=== PATIENT | female | born 1955 | race Caucasian/White ===

== ENCOUNTER 2018-04-11 10:36 | Inpatient (IN) | payer BC ==
[~2018-04-11] VITALS: Ht 160 cm; Wt 87.9 kg
[~2018-04-11 10:36] MED LIST: AMIO100T3 PO; CARV3.1240 PO; CHOL400C12 PO; DAPA1TAB4 PO; DULO20CA PO; FURO40TA PO; GABA-339 PO; HYDR-531 PO; LEV100T PO; MET5XLT PO; METF-370 PO; MILK175C5 PO; POTA20TA53 PO; RIV20T PO; SIMV-8 PO; TRIA0.1P11 TOP
[2018-04-11] MEDS ORDERED: FUROSEMIDE 40 MG/4 ML VIAL IV ONE (11:00)
[2018-04-11 11:24] LABS: Basophils # (auto) 0.1 uL; Eosinophils # (auto) 0.1 uL; Eosinophils % (auto) 1.2 % (0.0-7.0); Lymphocytes # (auto) 1.5 uL; Mean Corpuscular Volume 80.8 fL (80.0-100.0); Monocytes # (auto) 0.8 uL; Neutrophils # (auto) 5.6 uL
[2018-04-11 11:26] LABS: Basophils % (auto) 0.9 % (0.0-2.0); Hematocrit 34.9 % (36.0-46.0); Hemoglobin 10.8 g/dL (12.2-16.2); Lymphocytes % (auto) 18.1 % (10.0-50.0); Monocytes % (auto) 10.2 % (0.0-12.0); Neutrophils % (auto) 69.6 % (37.0-80.0); Nucleated Red Blood Cells % 0.1 %; Platelet Count (auto) 355 10^3/uL (140-450); Red Blood Cells 4.31 10^6/uL (4.0-5.20); White Blood Cell 8.1 10^3/uL (4.4-10.8)
[2018-04-11 11:40] LABS: Albumin 3.4 g/dL (3.4-5.0); Anion Gap 3 (5-15); Blood Urea Nitrogen 50 mg/dL (7-18); Calcium 8.8 mg/dL (8.5-10.1); Carbon Dioxide 32 mmol/L (21-32); Chloride 105 mmol/L (98-107); Glucose 137 mg/dL (74-106); Magnesium 2.6 mg/dL (1.6-2.6); Potassium 5.5 mmol/L (3.5-5.1); Sodium 140 mmol/L (136-145)
[2018-04-11 11:41] LABS: INR 1.19 (0.9-1.15); Partial Thromboplastin Time 29.2 sec (23.78-33.04); Prothrombin Time 12.6 sec (9.27-12.13)
[2018-04-11 11:47] LABS: Red Cell Distribution Width 20.7 % (11.8-14.3)
[2018-04-11 11:49] LABS: Alanine Aminotransferase 14 U/L (13-56); Alkaline Phosphatase 127 U/L (45-117); Aspartate Aminotransferase 23 U/L (15-37); BUN/Creatinine Ratio 22.2; Bilirubin, Total 0.5 mg/dL (0.2-1.0); GFR African American 28 mL/min; GFR Non-African American 23 mL/min
[2018-04-11] MEDS ORDERED: MORPHINE SULFATE 10 MG/ML INJ 1ML SDV IV PRN ×2 (14:45)
[2018-04-11] MEDS ORDERED: NITROGLYCERIN 0.4 MG SL TAB SL PRN (14:45)
[2018-04-11] MEDS ORDERED: DEXTROSE (50%) 50ML SYRG IV PRN (14:45)
[2018-04-11] MEDS ORDERED: LACTULOSE 20Gm/30ML SOLN PO PRN (14:45)
[2018-04-11] MEDS ORDERED: LORazepam 0.5 MG TAB PO PRN (14:45)
[2018-04-11] MEDS ORDERED: ACETAMINOPHEN 500 MG TAB PO PRN (14:45)
[2018-04-11] MEDS ORDERED: TEMAZEPAM 15 MG CAP PO PRN (14:45)
[2018-04-11] MEDS: HYDROcodone-ACET 5/325MG TAB PO PRN ×2 (14:59→21:58)
[2018-04-11] MEDS: ACCU-CHEK COMFORT CURVE STRIP VI SCH ×2 (16:43→21:57)
[2018-04-11] MEDS: InsuLIN REG 1unit/0.01ml Soln (100units/ml) SC SCH ×2 (16:43→21:59)
[2018-04-11] MEDS: FUROSEMIDE 40 MG/4 ML VIAL IV SCH (18:08)
[2018-04-11] MEDS: SPIRONOLACTONE 25 MG TAB PO SCH (18:08)
[2018-04-11] MEDS: RIVAROXABAN 20 MG TAB PO SCH (18:08)
[2018-04-11 18:35] VITALS: BP 121/75
[2018-04-11] MEDS ORDERED: GABA-339 PO (18:55)
[2018-04-11] MEDS ORDERED: SPIR25TA88 PO (18:55)
[2018-04-11] MEDS ORDERED: BUME1TAB PO (18:55)
[2018-04-11] MEDS ORDERED: LEVOFLOXACIN 500MG 100 ML IV ONE (20:30)
[2018-04-11] MEDS: GABAPENTIN 300 MG CAP PO SCH (21:57)
[2018-04-11] MEDS: ATORVASTATIN 20 MG TAB PO SCH (21:57)
[2018-04-11] MEDS: SODIUM CHLOR 0.9% PF (SALINE LOCK) 10ML VIAL/SYR IV SCH (21:57)
[2018-04-11 22:00] VITALS: BP 107/70
[2018-04-12] VITALS (17 sets, daily range): BP systolic 96–132; BP diastolic 60–85
[2018-04-12 05:51] LABS: Basophils # (auto) 0 uL; Lymphocytes # (auto) 1.2 uL; Lymphocytes % (auto) 20.1 % (10.0-50.0); Mean Corpuscular Volume 79.8 fL (80.0-100.0); Monocytes # (auto) 0.7 uL; Nucleated Red Blood Cells % 0.1 %
[2018-04-12 05:55] LABS: Basophils % (auto) 0.7 % (0.0-2.0); Eosinophils # (auto) 0 uL; Eosinophils % (auto) 0.8 % (0.0-7.0); Hematocrit 30.2 % (36.0-46.0); Hemoglobin 9.8 g/dL (12.2-16.2); Mean Corpuscular Hemoglobin 25.9 pg (28.0-32.0); Mean Corpuscular Hgb Conc. 32.5 g/dL (32.0-36.0); Monocytes % (auto) 12.6 % (0.0-12.0); Neutrophils # (auto) 3.8 uL; Neutrophils % (auto) 65.8 % (37.0-80.0); Platelet Count (auto) 253 10^3/uL (140-450); Red Blood Cells 3.78 10^6/uL (4.0-5.20); White Blood Cell 5.8 10^3/uL (4.4-10.8)
[2018-04-12 06:11] LABS: BUN/Creatinine Ratio 23.1; Calcium 8.7 mg/dL (8.5-10.1); Potassium 4.8 mmol/L (3.5-5.1)
[2018-04-12 06:13] LABS: Bilirubin, Total 0.4 mg/dL (0.2-1.0); Total Protein 6.4 g/dL (6.4-8.2)
[2018-04-12 06:20] LABS: Red Cell Distribution Width 20.3 % (11.8-14.3)
[2018-04-12] MEDS: LEVOTHYROXINE SODIUM 50 MCG TAB PO SCH (06:49)
[2018-04-12] MEDS: SPIRONOLACTONE 25 MG TAB PO SCH ×2 (06:49→18:10)
[2018-04-12] MEDS: FUROSEMIDE 40 MG/4 ML VIAL IV SCH ×2 (06:49→18:10)
[2018-04-12] MEDS: SODIUM CHLOR 0.9% PF (SALINE LOCK) 10ML VIAL/SYR IV SCH ×3 (06:49→22:52)
[2018-04-12] MEDS: ACCU-CHEK COMFORT CURVE STRIP VI SCH ×4 (06:50→22:51)
[2018-04-12] MEDS: InsuLIN REG 1unit/0.01ml Soln (100units/ml) SC SCH ×4 (06:50→22:50)
[2018-04-12] MEDS ORDERED: INS7030I SC ×2 (07:24)
[2018-04-12] MEDS: HYDROcodone-ACET 5/325MG TAB PO PRN (08:47)
[2018-04-12] MEDS: AMIODARONE HCL 200 MG TAB PO SCH (08:47)
[2018-04-12] MEDS: GABAPENTIN 300 MG CAP PO SCH ×2 (08:48→22:00)
[2018-04-12] MEDS: LEVOFLOXACIN 250MG 50 ML IV SCH (08:48)
[2018-04-12] MEDS: PANTOPRAZOLE 40 MG TAB PO SCH (08:48)
[2018-04-12] MEDS: POTASSIUM CHL 20 Meq TABLET PO SCH (08:48)
[2018-04-12] MEDS: CHOLECALCIFEROL (VITD3) 1,000 UNIT TAB PO SCH (08:48)
[2018-04-12] MEDS: NITROGLYCERIN 0.2MG/HR TOPICAL PATCH TD SCH (08:50)
[2018-04-12] MEDS ORDERED: CARVEDILOL 3.125 MG TAB PO SCH (10:00)
[2018-04-12] MEDS ORDERED: ASPirin 81 mg TAB PO SCH (10:00)
[2018-04-12] MEDS ORDERED: DULoxetine HCL 30 MG CAP PO SCH (10:00)
[2018-04-12] MEDS: HYDROcodone-ACET 10/325MG TAB PO PRN (16:00)
[2018-04-12 17:02] LABS: Urine WBC None Seen /hpf (0 - 5)
[2018-04-12 17:28] LABS: Urine Bacteria NONE SEEN /hpf (None Seen); Urine Blood Negative /uL (Negative); Urine Specific Gravity 1.012 (1.001-1.035)
[2018-04-12] MEDS: RIVAROXABAN 20 MG TAB PO SCH (18:10)
[2018-04-12] MEDS: PROMETHAZINE HCL 25 MG/ML 1ML IV PRN (21:00)
[2018-04-12] MEDS: INSULIN 70/30 1unit/0.01ml Susp (100units/ml) SC SCH (22:00)
[2018-04-12] MEDS: ATORVASTATIN 20 MG TAB PO SCH (22:00)
[2018-04-13] MEDS: MORPHINE SULFATE 10 MG/ML INJ 1ML SDV IV PRN ×4 (01:00→22:49)
[2018-04-13 05:00] VITALS: BP 101/73
[2018-04-13] MEDS: SPIRONOLACTONE 25 MG TAB PO SCH ×3 (06:00→17:44)
[2018-04-13 06:37] LABS: Basophils # (auto) 0 uL; Basophils % (auto) 0.4 % (0.0-2.0); Eosinophils # (auto) 0 uL; Eosinophils % (auto) 0.7 % (0.0-7.0); Hemoglobin 8.6 g/dL (12.2-16.2); Lymphocytes # (auto) 1.1 uL; Lymphocytes % (auto) 16.1 % (10.0-50.0); Mean Corpuscular Hemoglobin 25.2 pg (28.0-32.0); Mean Corpuscular Hgb Conc. 31.9 g/dL (32.0-36.0); Monocytes # (auto) 0.8 uL; Neutrophils # (auto) 4.7 uL; Neutrophils % (auto) 70.8 % (37.0-80.0); Nucleated Red Blood Cells % 0.1 %; Platelet Count (auto) 258 10^3/uL (140-450); Red Blood Cells 3.42 10^6/uL (4.0-5.20); White Blood Cell 6.7 10^3/uL (4.4-10.8)
[2018-04-13 06:39] LABS: Red Cell Distribution Width 20.5 % (11.8-14.3)
[2018-04-13 06:42] LABS: BUN/Creatinine Ratio 22.4; Calcium 8.6 mg/dL (8.5-10.1); Magnesium 2.2 mg/dL (1.6-2.6); Potassium 4.2 mmol/L (3.5-5.1); Uric Acid 11.7 mg/dL (2.6-6.0)
[2018-04-13 06:46] LABS: Bilirubin, Direct 0.2 mg/dL (0-0.2); Bilirubin, Total 0.4 mg/dL (0.2-1.0); Phosphorus 3.9 mg/dL (2.5-4.90); Total Protein 6.1 g/dL (6.4-8.2)
[2018-04-13] MEDS: SODIUM CHLOR 0.9% PF (SALINE LOCK) 10ML VIAL/SYR IV SCH ×3 (06:54→22:47)
[2018-04-13] MEDS: ACCU-CHEK COMFORT CURVE STRIP VI SCH ×4 (06:56→22:49)
[2018-04-13] MEDS: FUROSEMIDE 40 MG/4 ML VIAL IV SCH ×2 (06:56→17:43)
[2018-04-13] MEDS: LEVOTHYROXINE SODIUM 50 MCG TAB PO SCH (06:57)
[2018-04-13] MEDS: InsuLIN REG 1unit/0.01ml Soln (100units/ml) SC SCH ×4 (07:00→22:48)
[2018-04-13] MEDS: LEVOFLOXACIN 250MG 50 ML IV SCH (09:29)
[2018-04-13] MEDS: AMIODARONE HCL 200 MG TAB PO SCH (09:30)
[2018-04-13] MEDS: PANTOPRAZOLE 40 MG TAB PO SCH (09:31)
[2018-04-13] MEDS: POTASSIUM CHL 20 Meq TABLET PO SCH (09:31)
[2018-04-13] MEDS: GABAPENTIN 300 MG CAP PO SCH ×2 (09:31→22:48)
[2018-04-13] MEDS: NITROGLYCERIN 0.2MG/HR TOPICAL PATCH TD SCH (09:32)
[2018-04-13] MEDS: CHOLECALCIFEROL (VITD3) 1,000 UNIT TAB PO SCH (09:32)
[2018-04-13] MEDS: METOPROLOL SUCCINATE XL 50 MG TAB PO SCH (09:53)
[2018-04-13] MEDS: INSULIN 70/30 1unit/0.01ml Susp (100units/ml) SC SCH ×2 (09:58→22:48)
[2018-04-13] MEDS: HYDROcodone-ACET 10/325MG TAB PO PRN ×2 (10:00→17:44)
[2018-04-13 10:10] VITALS: BP 100/62
[2018-04-13 11:00] LABS: Protein, Urine 19.8 mg/dL (0.0-11.9)
[2018-04-13] MEDS: ALLOPURINOL 100 MG TAB PO SCH (11:43)
[2018-04-13 13:00] VITALS: BP 117/79
[2018-04-13 17:18] VITALS: BP 99/66
[2018-04-13 22:00] VITALS: BP 101/63
[2018-04-13] MEDS: ATORVASTATIN 20 MG TAB PO SCH (22:47)
[2018-04-14] MEDS: HYDROcodone-ACET 10/325MG TAB PO PRN (00:59)
[2018-04-14 05:00] VITALS: BP 114/69
[2018-04-14] MEDS: InsuLIN REG 1unit/0.01ml Soln (100units/ml) SC SCH ×4 (06:20→22:17)
[2018-04-14 06:32] LABS: Eosinophils # (auto) 0.1 uL; Eosinophils % (auto) 0.7 % (0.0-7.0); Lymphocytes # (auto) 1.4 uL; Mean Corpuscular Volume 78.4 fL (80.0-100.0); White Blood Cell 7.9 10^3/uL (4.4-10.8)
[2018-04-14 06:34] LABS: Basophils # (auto) 0 uL; Basophils % (auto) 0.6 % (0.0-2.0); Hematocrit 24.4 % (36.0-46.0); Lymphocytes % (auto) 18.1 % (10.0-50.0); Mean Corpuscular Hemoglobin 25.6 pg (28.0-32.0); Mean Corpuscular Hgb Conc. 32.7 g/dL (32.0-36.0); Monocytes % (auto) 13.1 % (0.0-12.0); Neutrophils # (auto) 5.3 uL; Neutrophils % (auto) 67.5 % (37.0-80.0); Platelet Count (auto) 245 10^3/uL (140-450); Red Blood Cells 3.11 10^6/uL (4.0-5.20); Red Cell Distribution Width 19.9 % (11.8-14.3)
[2018-04-14 06:42] LABS: Potassium 3.8 mmol/L (3.5-5.1)
[2018-04-14] MEDS: SODIUM CHLOR 0.9% PF (SALINE LOCK) 10ML VIAL/SYR IV SCH ×3 (06:45→21:51)
[2018-04-14] MEDS: FUROSEMIDE 40 MG/4 ML VIAL IV SCH ×2 (06:45→17:46)
[2018-04-14] MEDS: SPIRONOLACTONE 25 MG TAB PO SCH (06:45)
[2018-04-14] MEDS: ACCU-CHEK COMFORT CURVE STRIP VI SCH ×4 (06:46→21:58)
[2018-04-14] MEDS: LEVOTHYROXINE SODIUM 50 MCG TAB PO SCH (06:46)
[2018-04-14] MEDS: MORPHINE SULFATE 10 MG/ML INJ 1ML SDV IV PRN ×3 (06:48→20:23)
[2018-04-14 06:49] LABS: BUN/Creatinine Ratio 23.2; Calcium 8.3 mg/dL (8.5-10.1)
[2018-04-14 08:45] VITALS: BP 111/69
[2018-04-14] MEDS: LEVOFLOXACIN 250MG 50 ML IV SCH (09:35)
[2018-04-14] MEDS: METOPROLOL SUCCINATE XL 50 MG TAB PO SCH (09:35)
[2018-04-14] MEDS: ALLOPURINOL 100 MG TAB PO SCH (09:36)
[2018-04-14] MEDS: AMIODARONE HCL 200 MG TAB PO SCH (09:36)
[2018-04-14] MEDS: GABAPENTIN 300 MG CAP PO SCH ×2 (09:37→21:52)
[2018-04-14] MEDS: PANTOPRAZOLE 40 MG TAB PO SCH (09:37)
[2018-04-14] MEDS: POTASSIUM CHL 20 Meq TABLET PO SCH (09:37)
[2018-04-14] MEDS: NITROGLYCERIN 0.2MG/HR TOPICAL PATCH TD SCH (09:38)
[2018-04-14] MEDS: CHOLECALCIFEROL (VITD3) 1,000 UNIT TAB PO SCH (09:38)
[2018-04-14] MEDS: INSULIN 70/30 1unit/0.01ml Susp (100units/ml) SC SCH ×2 (10:29→22:17)
[2018-04-14 13:00] VITALS: BP 100/68
[2018-04-14] MEDS ORDERED: FERROUS SULFATE 325 MG TAB PO ONE (13:30)
[2018-04-14] MEDS: PROMETHAZINE HCL 25 MG/ML 1ML IV PRN (16:14)
[2018-04-14 17:12] VITALS: BP 114/74
[2018-04-14] MEDS: FERROUS SULFATE 325 MG TAB PO SCH (17:46)
[2018-04-14] MEDS: ATORVASTATIN 20 MG TAB PO SCH (21:51)
[2018-04-14 22:00] VITALS: BP 108/67
[2018-04-15 05:00] VITALS: BP 106/68
[2018-04-15] MEDS: SODIUM CHLOR 0.9% PF (SALINE LOCK) 10ML VIAL/SYR IV SCH ×3 (06:17→22:47)
[2018-04-15] MEDS: FUROSEMIDE 40 MG/4 ML VIAL IV SCH (06:17)
[2018-04-15] MEDS: LEVOTHYROXINE SODIUM 50 MCG TAB PO SCH (06:18)
[2018-04-15] MEDS: MORPHINE SULFATE 10 MG/ML INJ 1ML SDV IV PRN ×3 (06:19→20:14)
[2018-04-15 06:31] LABS: Basophils # (auto) 0 uL; Eosinophils # (auto) 0 uL; Lymphocytes # (auto) 1.4 uL; Mean Corpuscular Volume 78.9 fL (80.0-100.0); Monocytes % (auto) 12.3 % (0.0-12.0)
[2018-04-15 06:34] LABS: Basophils % (auto) 0.5 % (0.0-2.0); Eosinophils % (auto) 0.4 % (0.0-7.0); Hematocrit 24.2 % (36.0-46.0); Hemoglobin 7.8 g/dL (12.2-16.2); Lymphocytes % (auto) 17.8 % (10.0-50.0); Mean Corpuscular Hemoglobin 25.3 pg (28.0-32.0); Mean Corpuscular Hgb Conc. 32.1 g/dL (32.0-36.0); Neutrophils # (auto) 5.4 uL; Nucleated Red Blood Cells % 0.5 %; Platelet Count (auto) 261 10^3/uL (140-450); Red Blood Cells 3.07 10^6/uL (4.0-5.20); White Blood Cell 7.8 10^3/uL (4.4-10.8)
[2018-04-15 06:38] LABS: Red Cell Distribution Width 20.1 % (11.8-14.3)
[2018-04-15 06:50] LABS: BUN/Creatinine Ratio 20.7; Calcium 8.1 mg/dL (8.5-10.1); Magnesium 2.3 mg/dL (1.6-2.6); Potassium 3.8 mmol/L (3.5-5.1)
[2018-04-15] MEDS: ACCU-CHEK COMFORT CURVE STRIP VI SCH ×4 (06:51→22:42)
[2018-04-15] MEDS: InsuLIN REG 1unit/0.01ml Soln (100units/ml) SC SCH ×4 (06:52→22:43)
[2018-04-15 08:00] VITALS: BP 102/46
[2018-04-15 09:14] VITALS: BP 102/46
[2018-04-15] MEDS: NITROGLYCERIN 0.2MG/HR TOPICAL PATCH TD SCH (10:00)
[2018-04-15] MEDS: LEVOFLOXACIN 250MG 50 ML IV SCH (10:14)
[2018-04-15] MEDS: CHOLECALCIFEROL (VITD3) 1,000 UNIT TAB PO SCH (10:15)
[2018-04-15] MEDS: GABAPENTIN 300 MG CAP PO SCH ×2 (10:15→22:37)
[2018-04-15] MEDS: SPIRONOLACTONE 25 MG TAB PO SCH (10:15)
[2018-04-15] MEDS: ALLOPURINOL 100 MG TAB PO SCH (10:15)
[2018-04-15] MEDS: PANTOPRAZOLE 40 MG TAB PO SCH (10:15)
[2018-04-15] MEDS: POTASSIUM CHL 20 Meq TABLET PO SCH (10:16)
[2018-04-15] MEDS: INSULIN 70/30 1unit/0.01ml Susp (100units/ml) SC SCH ×2 (10:18→22:46)
[2018-04-15] MEDS: FERROUS SULFATE 325 MG TAB PO SCH ×2 (10:29→17:47)
[2018-04-15] MEDS: AMIODARONE HCL 200 MG TAB PO SCH (10:29)
[2018-04-15] MEDS: PROMETHAZINE HCL 25 MG/ML 1ML IV PRN ×2 (12:34→20:13)
[2018-04-15 12:37] VITALS: BP 92/48
[2018-04-15] MEDS ORDERED: ALBUMIN 25% 50 ML IV ONE (14:56)
[2018-04-15] MEDS ORDERED: MORPHINE SULFATE 4 MG/ML SYR/VIAL IV PRN (15:00)
[2018-04-15] MEDS ORDERED: HYDROcodone-ACET 10/325MG TAB PO PRN (15:00)
[2018-04-15] MEDS: ALBUMIN 25% 50 ML IV SCH ×2 (15:03→23:00)
[2018-04-15 15:13] LABS: Albumin 2.7 g/dL (3.4-5.0)
[2018-04-15 16:21] LABS: Hepatitis B Surface Antibody Negative
[2018-04-15] MEDS: METOPROLOL SUCCINATE XL 50 MG TAB PO SCH (16:34)
[2018-04-15 16:49] VITALS: BP 96/65
[2018-04-15 17:58] LABS: Hepatitis B Surface Antigen Negative (Negative)
[2018-04-15 17:59] LABS: Hepatitis C Antibody Negative (Negative)
[2018-04-15 18:00] LABS: Hepatitis A Total Antibody Negative; Hepatitis B Core Total AB Negative
[2018-04-15 22:00] VITALS: BP 100/60
[2018-04-15] MEDS: ATORVASTATIN 20 MG TAB PO SCH (22:38)
[2018-04-16] MEDS: PROMETHAZINE HCL 25 MG/ML 1ML IV PRN ×2 (00:28→12:05)
[2018-04-16] MEDS: MORPHINE SULFATE 10 MG/ML INJ 1ML SDV IV PRN ×2 (00:42→06:08)
[2018-04-16 05:00] VITALS: BP 93/44
[2018-04-16] MEDS: SODIUM CHLOR 0.9% PF (SALINE LOCK) 10ML VIAL/SYR IV SCH ×2 (06:08→14:00)
[2018-04-16] MEDS: ALBUMIN 25% 50 ML IV SCH (06:09)
[2018-04-16] MEDS: ACCU-CHEK COMFORT CURVE STRIP VI SCH ×3 (06:12→17:00)
[2018-04-16] MEDS: InsuLIN REG 1unit/0.01ml Soln (100units/ml) SC SCH ×3 (06:16→17:00)
[2018-04-16] MEDS: LEVOTHYROXINE SODIUM 50 MCG TAB PO SCH (06:36)
[2018-04-16 07:45] LABS: BUN/Creatinine Ratio 22.5; Calcium 8.6 mg/dL (8.5-10.1); Uric Acid 10.6 mg/dL (2.6-6.0)
[2018-04-16 08:00] VITALS: BP 134/63
[2018-04-16 08:48] VITALS: BP 134/63
[2018-04-16] MEDS: SPIRONOLACTONE 25 MG TAB PO SCH (09:16)
[2018-04-16] MEDS: METOPROLOL SUCCINATE XL 50 MG TAB PO SCH (09:17)
[2018-04-16] MEDS: ALLOPURINOL 100 MG TAB PO SCH (09:17)
[2018-04-16] MEDS: FERROUS SULFATE 325 MG TAB PO SCH ×2 (09:17→18:00)
[2018-04-16] MEDS: POTASSIUM CHL 20 Meq TABLET PO SCH (09:17)
[2018-04-16] MEDS: PANTOPRAZOLE 40 MG TAB PO SCH (09:18)
[2018-04-16] MEDS: GABAPENTIN 300 MG CAP PO SCH (09:18)
[2018-04-16] MEDS: AMIODARONE HCL 200 MG TAB PO SCH (09:18)
[2018-04-16] MEDS: CHOLECALCIFEROL (VITD3) 1,000 UNIT TAB PO SCH (09:19)
[2018-04-16] MEDS: INSULIN 70/30 1unit/0.01ml Susp (100units/ml) SC SCH (09:23)
[2018-04-16] MEDS: LEVOFLOXACIN 250MG 50 ML IV SCH (09:34)
[2018-04-16] MEDS ORDERED: FUROSEMIDE 40 MG TAB PO SCH (10:00)
[2018-04-16] MEDS ORDERED: AMIO100T3 PO (11:24)
[2018-04-16] MEDS ORDERED: AMIODARONE HCL 200 MG TAB PO ONE (11:30)
[2018-04-16 11:52] VITALS: BP 100/69
[2018-04-16 14:08] VITALS: BP 134/63
[2018-04-16 17:13] VITALS: BP 105/70
== END 2018-04-16 18:51 | disposition home health service (06) | DRG 291 ==
LOC: ER 10:40 → OVERFLOW 14:37 → TELE-WESTW 17:40
PROVIDERS: ADMIT Internal Medicine; ATTEND Internal Medicine
PROC: 0W9G3ZZ Drainage of Peritoneal Cavity, Percutaneous Approach (ICD-10-PCS; principal; 2018-04-12)
DX: I13.0 Hypertensive heart and chronic kidney disease with heart failure and stage 1 through stage 4 chronic kidney disease, or unspecified chronic kidney disease (principal); N17.0 Acute kidney failure with tubular necrosis; I50.23 Acute on chronic systolic (congestive) heart failure; J90 Pleural effusion, not elsewhere classified; R18.8 Other ascites; L03.116 Cellulitis of left lower limb; N18.4 Chronic kidney disease, stage 4 (severe); S30.1XXA Contusion of abdominal wall, initial encounter; I42.0 Dilated cardiomyopathy; E11.22 Type 2 diabetes mellitus with diabetic chronic kidney disease; T45.515A Adverse effect of anticoagulants, initial encounter; E03.9 Hypothyroidism, unspecified; D63.8 Anemia in other chronic diseases classified elsewhere; I25.2 Old myocardial infarction; I70.0 Atherosclerosis of aorta; J44.9 Chronic obstructive pulmonary disease, unspecified; D35.00 Benign neoplasm of unspecified adrenal gland; I25.10 Atherosclerotic heart disease of native coronary artery without angina pectoris; E79.0 Hyperuricemia without signs of inflammatory arthritis and tophaceous disease; I48.0 Paroxysmal atrial fibrillation; Z95.1 Presence of aortocoronary bypass graft; E66.9 Obesity, unspecified; D35.02 Benign neoplasm of left adrenal gland; K80.20 Calculus of gallbladder without cholecystitis without obstruction; I48.2 Chronic atrial fibrillation; E78.5 Hyperlipidemia, unspecified; I50.84 End stage heart failure; E11.42 Type 2 diabetes mellitus with diabetic polyneuropathy; Z88.1 Allergy status to other antibiotic agents; Z79.899 Other long term (current) drug therapy; Z82.49 Family history of ischemic heart disease and other diseases of the circulatory system; Z82.5 Family history of asthma and other chronic lower respiratory diseases
CPT/HCPCS: 36415; 71045; 74176; 76700; 76705; 76942; 80048; 80053; 80061; 80076; 81001; 82040; 82306; 82378; 82570; 82962; 83036; 83735; 83880; 83935; 84100; 84155; 84156; 84300; 84439; 84443; 84484; 84550; 85025; 85610; 85613; 85670; 85705; 85730; 85732; 86225; 86300; 86301; 86304; 86704; 86706; 86708; 86803; 87205; 87340; 89051; 93005; 96374; G0378; J1815; J1956

== ENCOUNTER 2018-05-21 05:59 | Inpatient (IN) | payer BC ==
[~2018-05-21] VITALS: Ht 152.4 cm; Wt 82.2 kg
[~2018-05-21 05:59] MED LIST changes: +BUME1TAB PO; -CARV3.1240 PO; -DAPA1TAB4 PO; -DULO20CA PO; -FURO40TA PO; +INS7030I SC; -RIV20T PO; +SPIR25TA88 PO
[2018-05-21 07:35] LABS: INR 1.11 (0.9-1.15); Partial Thromboplastin Time 27.3 sec (23.78-33.04); Prothrombin Time 11.8 sec (9.27-12.13)
[2018-05-21 07:36] LABS: Albumin 3.2 g/dL (3.4-5.0); BUN/Creatinine Ratio 18.4; Calcium 8.3 mg/dL (8.5-10.1); Magnesium 2.6 mg/dL (1.6-2.6)
[2018-05-21 07:37] LABS: Basophils # (auto) 0.1 uL; Basophils % (auto) 0.9 % (0.0-2.0); Eosinophils # (auto) 0.1 uL
[2018-05-21 07:39] LABS: Eosinophils % (auto) 1.1 % (0.0-7.0); Hematocrit 32.2 % (36.0-46.0); Hemoglobin 9.8 g/dL (12.2-16.2); Lymphocytes # (auto) 1.1 uL; Mean Corpuscular Hemoglobin 25.6 pg (28.0-32.0); Mean Corpuscular Hgb Conc. 30.5 g/dL (32.0-36.0); Mean Corpuscular Volume 83.9 fL (80.0-100.0); Monocytes # (auto) 0.9 uL; Monocytes % (auto) 10.5 % (0.0-12.0); Neutrophils # (auto) 6.4 uL; Neutrophils % (auto) 74.5 % (37.0-80.0); Platelet Count (auto) 387 10^3/uL (140-450); Red Blood Cells 3.83 10^6/uL (4.0-5.20); White Blood Cell 8.6 10^3/uL (4.4-10.8)
[2018-05-21 07:40] LABS: Bilirubin, Total 0.5 mg/dL (0.2-1.0)
[2018-05-21 07:44] LABS: Red Cell Distribution Width 21.2 % (11.8-14.3)
[2018-05-21] MEDS ORDERED: ALBUTEROL SULF 2.5 MG/0.5ML(0.5%) NEB SOLN NEB STA (08:08)
[2018-05-21] MEDS ORDERED: CALCIUM GLUC 4.65meq/50ml D5AE 50 ML IV ONE (08:15)
[2018-05-21] MEDS ORDERED: InsuLIN REG 1unit/0.01ml Soln (100units/ml) IV ONE (08:15)
[2018-05-21] MEDS ORDERED: SODIUM POLYSTYRENE SULF 15 GM POWDER PO ONE (08:15)
[2018-05-21] MEDS ORDERED: DEXTROSE (50%) 50ML SYRG IV ONE (08:15)
[2018-05-21] MEDS ORDERED: SODIUM BICARBONATE 8.4% INJ 50ML SYRINGE IV ONE (08:15)
[2018-05-21 08:20] LABS: Urine Bacteria MOD /hpf (None Seen); Urine Blood Negative /uL (Negative); Urine Hyaline Cast MANY /lpf (0 - 2); Urine Mucus FEW (None Seen); Urine Specific Gravity 1.016 (1.001-1.035); Urine WBC 2 /hpf (0 - 5)
[2018-05-21] MEDS ORDERED: ALBUAER3 IN (09:50)
[2018-05-21] MEDS ORDERED: HYDR-4798 PO (09:50)
[2018-05-21] MEDS ORDERED: RIV20T PO (09:50)
[2018-05-21] MEDS ORDERED: MORPHINE SULFATE 4 MG/ML SYR/VIAL IV PRN (10:15)
[2018-05-21] MEDS ORDERED: NITROGLYCERIN 0.4 MG SL TAB SL PRN (10:15)
[2018-05-21] MEDS ORDERED: BUMETANIDE (0.25MG/ML) 4 ML VIAL IV ONE (10:30)
[2018-05-21] MEDS ORDERED: DEXTROSE (50%) 50ML SYRG IV PRN (10:30)
[2018-05-21] MEDS ORDERED: GABAPENTIN 300 MG CAP PO SCH (11:00)
[2018-05-21] MEDS: cefTRIAXone 1GM/50ML D5W 50 ML IV SCH (11:10)
[2018-05-21] MEDS: InsuLIN REG 1unit/0.01ml Soln (100units/ml) SC SCH ×3 (11:30→22:00)
[2018-05-21] MEDS: ACCU-CHEK COMFORT CURVE STRIP VI SCH ×3 (11:56→22:18)
[2018-05-21] MEDS ORDERED: BUMETANIDE (0.25MG/ML) 4 ML VIAL IV SCH (18:00)
[2018-05-21] MEDS: BUMETANIDE INJECTION 25 MG in GIVE UN-DILUTED 0 ML IV SCH (18:45)
[2018-05-21] MEDS: ALBUMIN 25% 100 ML IV SCH ×2 (19:45→21:12)
[2018-05-21 21:01] LABS: Calcium 8.4 mg/dL (8.5-10.1)
[2018-05-21 21:03] LABS: BUN/Creatinine Ratio 18.9
[2018-05-21 21:05] LABS: Potassium 5.7 mmol/L (3.5-5.1)
[2018-05-21] MEDS ORDERED: SODIUM POLYSTYRENE SULF 15GM/60ml SUSP or POWDER PO ONE (22:15)
[2018-05-21] MEDS: ATORVASTATIN 20 MG TAB PO SCH (22:18)
--- NOTE | 2018-05-22 04:33 | NUR ---
Respiratory note: PT ALERT AND AWAKE. PT HR 48 RR 18 [id number]% ON RA BS CLEAR BILATERALLY. PRN MED NEB TX NOT INDICATED AT THIS TIME WILL CONTINUE TO MONITOR PT ORDERED.
[2018-05-22 05:43] LABS: Basophils # (auto) 0 uL; Basophils % (auto) 0.6 % (0.0-2.0); Eosinophils # (auto) 0 uL; Hemoglobin 9.4 g/dL (12.2-16.2); Lymphocytes # (auto) 0.6 uL; Monocytes # (auto) 0.6 uL; Neutrophils # (auto) 4.5 uL; White Blood Cell 5.7 10^3/uL (4.4-10.8)
[2018-05-22 05:46] LABS: Eosinophils % (auto) 0.3 % (0.0-7.0); Hematocrit 29.5 % (36.0-46.0); Lymphocytes % (auto) 10.3 % (10.0-50.0); Mean Corpuscular Hemoglobin 26.5 pg (28.0-32.0); Mean Corpuscular Hgb Conc. 31.9 g/dL (32.0-36.0); Mean Corpuscular Volume 83.3 fL (80.0-100.0); Monocytes % (auto) 10.4 % (0.0-12.0); Neutrophils % (auto) 78.4 % (37.0-80.0); Platelet Count (auto) 297 10^3/uL (140-450); Red Blood Cells 3.54 10^6/uL (4.0-5.20)
[2018-05-22 06:31] LABS: Potassium 5.4 mmol/L (3.5-5.1)
[2018-05-22] MEDS: ACCU-CHEK COMFORT CURVE STRIP VI SCH ×4 (06:51→22:34)
[2018-05-22] MEDS: LEVOTHYROXINE SODIUM 50 MCG TAB PO SCH (06:53)
[2018-05-22 06:58] LABS: Albumin 3.2 g/dL (3.4-5.0); BUN/Creatinine Ratio 18.7; Bilirubin, Total 0.5 mg/dL (0.2-1.0); Calcium 8.4 mg/dL (8.5-10.1); Magnesium 2.5 mg/dL (1.6-2.6); Phosphorus 5.8 mg/dL (2.5-4.90); Total Protein 6.2 g/dL (6.4-8.2); Uric Acid 14.4 mg/dL (2.6-6.0)
[2018-05-22] MEDS: InsuLIN REG 1unit/0.01ml Soln (100units/ml) SC SCH ×4 (06:58→22:35)
[2018-05-22] MEDS: cefTRIAXone 1GM/50ML D5W 50 ML IV SCH (09:00)
[2018-05-22] MEDS ORDERED: SPIRONOLACTONE 25 MG TAB PO SCH (10:00)
[2018-05-22] MEDS ORDERED: cefTRIAXone SOD 1,000 MG VL ONE (12:21)
--- NOTE | 2018-05-22 14:23 | NUR ---
Respiratory note: PT ASSESSED FOR PRN MED NEB TX. POX 92% ON RA, HR 50, RR 20. B/S ARE DIMINISHED THROUGHOUT. PT DENIES ANY RESPIRATORY DISTRESS. MED NEB TX IS NOT INDICATED AT THIS TIME.
[2018-05-22 14:28] VITALS: BP 95/51
--- NOTE | 2018-05-22 16:08 | NUR ---
ORDER FAXED TO [facility]QUESTING [facility] MANAGEMENT.
[2018-05-22] MEDS: BUMETANIDE INJECTION 25 MG in GIVE UN-DILUTED 0 ML IV SCH (17:02)
[2018-05-22 17:45] VITALS: BP 108/44
--- NOTE | 2018-05-22 17:45 | NUR ---
ADMISSION RECEIVED PT FROM ER VIA GURNEY AND TRANSFERRED TO [place] BED AND CONNECTED TO BEDSIDE MONITORING. PT A/O X3. ABLE TO FOLLOW SIMPLE COMMANDS. LUNGS CLEAR THROUGHOUT. ROOM AIR SAT OF 92%. ABD LARGE AND ROUND WITH +BOWEL SOUNDS. TERAN CATHETER DRAINING CLEAR YELLOW URINE. LAST BM WAS YESTERDAY, PER PT. SACUM NOTED TO BE BLANCHABLE RED. TURNED PT TO HER RIGHT SIDE. PHOTO TAKEN A Addendum: 05/22/18 at 1949 by Sammi Ryan RN PHOTO TAKEN OF CLOSED AREA WITH YELLOW THIN SCAB. PT STATED IT WAS WHERE SHE CUT HERSELF SHAVING AND SLOW TO HEAL AND BREAKS OPEN WHEN HER LEGS SWELL. BLANCHABLE RED NOTED TO HER SACRUM. OPTIFOAM DRESSING APPLIED. DENIES ANY PAIN. CONTINUE TO MONITOR.
--- NOTE | 2018-05-22 19:30 | NUR ---
REPORT GIVEN TO TITA BLANCO RN.
[2018-05-22 19:50] VITALS: BP 106/54
[2018-05-22 20:20] LABS: BUN/Creatinine Ratio 19.2
[2018-05-22] MEDS: ATORVASTATIN 20 MG TAB PO SCH (22:34)
[2018-05-22 22:53] LABS: Potassium 4.3 mmol/L (3.5-5.1)
--- NOTE | 2018-05-22 23:30 | NUR ---
PAGED THE HOSPITALIST RE: PAIN MEDICATION C/O LEG PAIN
--- NOTE | 2018-05-22 23:32 | NUR ---
WOUND PHOTO SKIN TEAR AND ECCHYMOSES NOTED IN THE LEFT FOREARM, CLEANSED WOUND WITH NS, PAT DRY AND WOUND PHOTO TAKEN FOR REFERENCE
--- NOTE | 2018-05-22 23:46 | NUR ---
INES OH CALLED BACK WITH ORDER TO GIVE NORCO 5MG Q 6HRS PRN FOR PAIN.
[2018-05-23] VITALS: BP 115/57
[2018-05-23] MEDS: HYDROcodone-ACET 5/325MG TAB PO PRN ×3 (00:05→21:13)
[2018-05-23 05:42] LABS: Basophils # (auto) 0.1 uL; Lymphocytes # (auto) 0.8 uL; Monocytes # (auto) 0.7 uL
[2018-05-23 05:44] LABS: Basophils % (auto) 0.9 % (0.0-2.0); Eosinophils # (auto) 0 uL; Eosinophils % (auto) 0.6 % (0.0-7.0); Hematocrit 28.4 % (36.0-46.0); Hemoglobin 9.1 g/dL (12.2-16.2); Lymphocytes % (auto) 10.8 % (10.0-50.0); Mean Corpuscular Hemoglobin 26.2 pg (28.0-32.0); Mean Corpuscular Hgb Conc. 32.1 g/dL (32.0-36.0); Mean Corpuscular Volume 81.8 fL (80.0-100.0); Monocytes % (auto) 9.1 % (0.0-12.0); Neutrophils # (auto) 5.9 uL; Neutrophils % (auto) 78.6 % (37.0-80.0); Platelet Count (auto) 288 10^3/uL (140-450); Red Blood Cells 3.47 10^6/uL (4.0-5.20); White Blood Cell 7.5 10^3/uL (4.4-10.8)
[2018-05-23 05:47] LABS: Red Cell Distribution Width 20.7 % (11.8-14.3)
[2018-05-23 05:58] LABS: BUN/Creatinine Ratio 20.2; Calcium 7.9 mg/dL (8.5-10.1)
--- NOTE | 2018-05-23 05:59 | NUR ---
PT ASSESSED FOR PRN HHN TX. PT IS ON 2LNC, SPO2 95%, HR 52, RR 18. NO S/S OF RESPIRATORY DISTRESS. PT AWARE TO HAVE RT PAGED IF BREATHING TX INDICATED.
[2018-05-23] MEDS: LEVOTHYROXINE SODIUM 50 MCG TAB PO SCH (07:00)
[2018-05-23] MEDS: InsuLIN REG 1unit/0.01ml Soln (100units/ml) SC SCH ×4 (07:00→21:36)
[2018-05-23] MEDS: ACCU-CHEK COMFORT CURVE STRIP VI SCH ×4 (07:00→21:35)
--- NOTE | 2018-05-23 07:30 | NUR ---
RECEIVED PATIENT SITTING UP IN THE BED, A/O TIMES 3, O2 BY R/A, NO COMPLAINTS OF PAIN OR SOB, TERAN TO GRAVITY, BUMEX AT 4ML/HR INFUSING INTO THE RT HAND BY THE IV PUMP, SALEIN LOCK TO THE RFA 20, INFILTRATED WILL DISCONTINUE
[2018-05-23 08:00] VITALS: BP 122/49
--- NOTE | 2018-05-23 08:30 | NUR ---
SITTING UP IN THE BED EATING HER BREAKFAST ABLE TO FEED HERSELF
--- NOTE | 2018-05-23 09:00 | NUR ---
EXPLAIN MEDICATION TO THE PATIENT REGARDING THE DOSAGE, USAGE, AND THE SIDE EFFECTS, VERBALIZED SHE UNDERSTOOD AND MEDS GIVEN ORDERED
[2018-05-23] MEDS: cefTRIAXone 1GM/50ML D5W 50 ML IV SCH (09:11)
--- NOTE | 2018-05-23 10:00 | NUR ---
IV STARTED IN THE LFA 22G 2/2 ATTEMPTS USING STERILE TECHNIQUE, LFA IV REMOVED DUE TO INFILTRATION
--- NOTE | 2018-05-23 10:30 | NUR ---
IN TO VISIT WITH THE PATIENT
--- NOTE | 2018-05-23 11:30 | NUR ---
NO CHANGE IN CONDITION, CONTINUE TO MONITOR WATCHING TV
[2018-05-23 12:00] VITALS: BP 120/64
--- NOTE | 2018-05-23 12:30 | NUR ---
SAT UP IN BED AND ATE HER LUNCH NO HELP NEEDED,
--- NOTE | 2018-05-23 13:22 | NUR ---
CALLED AND FAXED TO [facility] TCM
--- NOTE | 2018-05-23 13:30 | NUR ---
LEFT AND WENT HOME, PATIENT WATCHING
--- NOTE | 2018-05-23 14:30 | NUR ---
EYES CLOSED APPEARS TO BE SLEEPING
--- NOTE | 2018-05-23 14:47 | NUR ---
PATIENT SEMI FOWLERS IN BED, EYES CLOSED APPEARS TO BE SLEEPING
--- NOTE | 2018-05-23 15:35 | NUR ---
NUTRITION ASSESSMENT NOTES Please refer to link notes of nutrition screen form filed under the intervention section of the plan of care for further details. Est. Needs: 1350 kcal to 1800 kcal (15-20 kcal/kgBW), 73 gms to 91 gms pro (0.8-1.0 gms/kgBW). Will continue to monitor pertinent labs and reassess nutrient need prn Thank you. Addendum: 05/23/18 at [address] Amended: Links added.
--- NOTE | 2018-05-23 15:45 | NUR ---
FRIENDS IN TO VISIT WITH THE PATIENT AND THEY WOKE HER UP
[2018-05-23 16:00] VITALS: BP 90/50
--- NOTE | 2018-05-23 17:00 | NUR ---
FRIEND STILL WITH THE PATIENT
[2018-05-23] MEDS: BUMETANIDE INJECTION 25 MG in GIVE UN-DILUTED 0 ML IV SCH (17:08)
--- NOTE | 2018-05-23 18:00 | NUR ---
SITTING UP IN THE BED WATCHING TV WAITING TO EAT DINNER
--- NOTE | 2018-05-23 18:36 | NUR ---
DR FRANCOIS IN TO SEE THE PATIENT AND BACK TO SEE THE PATIENT, PATIENT IS EATING HER DINNER, O2 AT 1L BY THE N/C, A/O TIMES 4, SCD'S TO RANJITH LEGS, TERAN TO GRAVITY, BUMEX INFUSING INTO THE RT HAND AT 4ML/HR BY THE IV PUMP, SALINE LOCK TO THE RFA, NO COMPLAINTS OF PAIN, WILL CONTINUE TO MONITOR AND GIVE REPORT TO THE NEXT SHIFT
--- NOTE | 2018-05-23 18:59 | NUR ---
DR NEWBERRY IN TO SEE THE PATIENT
[2018-05-23] MEDS: ALBUTEROL SULF 2.5 MG/0.5ML(0.5%) NEB SOLN NEB PRN ×2 (19:12→23:08)
[2018-05-23] MEDS: IPRATROPIUM BROM 0.5 MG/2.5ML INH SOL NEB PRN ×2 (19:12→23:08)
--- NOTE | 2018-05-23 19:30 | NUR ---
Opening Shift Note Assumed care of patient, awake and alert. Breathing on O2NC 1LPM, even and nonlabored, stated feeling better after breathing treatment at 7pm, No S/S of distress/SOB. Mild aching pain all over body, will ask for pain medication. Mendoza's cath hung to gravity with clear yellowish urine. Bed in low position, call light within reach, fall and safety precaution in place, all alarms are audible. SCD to both legs. Instructed on POC and to call for assist PRN, will continue to monitor for changes Q1hr and PRN.
[2018-05-23 19:52] VITALS: BP 124/65
--- NOTE | 2018-05-23 20:45 | NUR ---
Consent obtained. Dr. Hanna at bedside at shift change, discussed POC and H/D with Pt and Pt's , Tunneled catheter for H/D placement ordered for tomorrow. Pt verbalized understanding, all questions answered, Pt signed the consent to therapeutic procedure.
[2018-05-23] MEDS: ATORVASTATIN 20 MG TAB PO SCH (21:12)
--- NOTE | 2018-05-23 22:38 | NUR ---
Condition update/ ask for breathing treatment Pt asked for breathing treatment, stated feeling tight. Pt A&O x4, RR22, no WOB, lung sounds clear, no wheezing noticed, O2sat 93% on O2NC 1LPM. Breathing treatment due in half an hour. Pt acknowledged and will wait for due time. Paged RT and notified. Continue care.
--- NOTE | 2018-05-23 23:35 | NUR ---
Condition update Breathing treatment done. Pt stated feeling much better, O2sat 99% on 2LPM O2NC. Pt said that she feels nervous about the procedure tomorrow, this might be the cause for difficulty breathing, discussed about the procedure, hemodialysis and d/c planning. Pt will try to get some rest. Continue care.
[2018-05-24] VITALS: BP 116/57
--- NOTE | 2018-05-24 01:00 | NUR ---
Desaturation Pt sleeping on bed, no s/s of distress, O2sat lowest at 69% with O2NC 2LPM. Increased O2 NC to 5LPM, O2sat increased to 99%, continue care.
--- NOTE | 2018-05-24 03:50 | NUR ---
Patient bathe/linen change Patient given complete bath. Skin integrity assessed for any changes, no new changes, ,z-guard applied. Complete linens changed. Patient repositioned for comfort. Passive ROM and Active ROM done before bathe. Tolerated fairly, slightly SOB after activities. Continue care.
[2018-05-24 04:00] VITALS: BP 148/82
[2018-05-24] MEDS: ACCU-CHEK COMFORT CURVE STRIP VI SCH ×4 (06:43→22:43)
[2018-05-24] MEDS: InsuLIN REG 1unit/0.01ml Soln (100units/ml) SC SCH ×4 (06:44→22:44)
[2018-05-24] MEDS: LEVOTHYROXINE SODIUM 50 MCG TAB PO SCH (06:44)
[2018-05-24 06:55] LABS: Basophils # (auto) 0 uL; Eosinophils # (auto) 0 uL; Hemoglobin 9.5 g/dL (12.2-16.2); Lymphocytes # (auto) 0.6 uL; Monocytes # (auto) 0.6 uL; Neutrophils # (auto) 6.6 uL
[2018-05-24] MEDS ORDERED: SODIUM CHL 0.9% 1000 ML BAG XX ONE (07:00)
[2018-05-24 07:02] LABS: Basophils % (auto) 0.6 % (0.0-2.0); Eosinophils % (auto) 0.3 % (0.0-7.0); Hematocrit 29.8 % (36.0-46.0); Lymphocytes % (auto) 7.4 % (10.0-50.0); Mean Corpuscular Hemoglobin 26.2 pg (28.0-32.0); Mean Corpuscular Hgb Conc. 31.7 g/dL (32.0-36.0); Mean Corpuscular Volume 82.5 fL (80.0-100.0); Monocytes % (auto) 7.4 % (0.0-12.0); Neutrophils % (auto) 84.3 % (37.0-80.0); Platelet Count (auto) 241 10^3/uL (140-450); Red Blood Cells 3.61 10^6/uL (4.0-5.20); White Blood Cell 7.8 10^3/uL (4.4-10.8)
[2018-05-24 07:04] LABS: Calcium 8.3 mg/dL (8.5-10.1); Magnesium 2.4 mg/dL (1.6-2.6); Potassium 3.3 mmol/L (3.5-5.1)
[2018-05-24 07:11] LABS: % Iron Saturation 10.2 % (15-50)
[2018-05-24 07:16] LABS: BUN/Creatinine Ratio 19.7
[2018-05-24 07:19] LABS: Red Cell Distribution Width 20.3 % (11.8-14.3)
[2018-05-24 07:30] VITALS: BP 115/62
--- NOTE | 2018-05-24 07:30 | NUR ---
RECEIVED PATIENT SITTING UP IN THE BED SLEEPING AWAKEN BY NAME BEING CALLED, A/O TIMES 4, O2 BY 2L, N/C WHILE SLEEPING, BUMEX INFUSING INTO THE RT HAND, AT 4ML/HR BY THE IV PUMP, SCD' TO RANJITH LEGS, TERAN TO GRAVITY, RFA SALINE LOCK FLUSHED AND PATENT, NO COMPLAINTS OF PAIN, EXPRESS TO HER THAT I DON'T KNOW WHAT TIME SHE WILL HAVE THE CATHETER PLACED
--- NOTE | 2018-05-24 08:10 | NUR ---
NOTIFIED BY NOMAN THAT THE BILLER HAD NO ROM FOR THE CATHETER TO BE PLACED SO THE PATIENT WILL NOT BE ABLE TO HAVE IT DONE TODAY, EXPRESS TO HER THAT IS NOT APPROPRIATE AND THEY WILL HAVE TO FIND ANOTHER SOLUTION
--- NOTE | 2018-05-24 08:30 | NUR ---
PATIENT MADE AWARE THAT SHE WAS NPO FOR THE DIALYSIS CATHETER TO BE PLACED TODAY
--- NOTE | 2018-05-24 08:40 | NUR ---
NOTIFIED DR NEWBERRY ABOUT THE POTASSIUM LEVEL BEING 3.3 AND STATED TO GIVE 20MEQ PO NOW
[2018-05-24] MEDS: cefTRIAXone 1GM/50ML D5W 50 ML IV SCH (08:48)
[2018-05-24] MEDS ORDERED: POTASSIUM CHL 20 Meq TABLET PO ONE (09:00)
--- NOTE | 2018-05-24 09:00 | NUR ---
Respiratory note: ASSESSMENT FOR PRN MED NEB TX. SPO2 98% ON 2L NC HR 56 RR 22 , BS CLEAR/DIMINISHED. MED NEB TX NOT INDICATED AT THIS TIME. WILL CONTINUE TO MONITOR.
--- NOTE | 2018-05-24 09:20 | NUR ---
NOTIFIED BY NOMAN THAT THEY WERE GOING TO HAVE THE ER MD PLACE AND TEMPORARY CATHETER AND AN PERMANENT ON SUNDAY, BUT IT WOULD BE A LITTLE LATER
--- NOTE | 2018-05-24 09:26 | NUR ---
called and faxed to [facility] order
--- NOTE | 2018-05-24 09:28 | NUR ---
called TCM this am and TCM stated they tried to call pt yesterday but no answer from pt, I instructed TCM to call pt's rm in [place] to see if they can reach pt this way
--- NOTE | 2018-05-24 10:00 | NUR ---
NOTIFIED DR NEWBERRY THAT I WAS HAVING A PROBLEM GETTING THE DIALYSIS PLACED BECAUSE DR ADAMES WAS NOT HERE TODAY, STATED HE WOULD CALL AND SEE IF HE COULD GET SOMEONE TO PLACE IT, BECAUSE HE DIDN'T WANT A TEMPORALLY PLACED TODAY AND A PERMANENT PLACED ON SUNDAY
--- NOTE | 2018-05-24 10:30 | NUR ---
SPOKE WITH DR NEWBERRY AND STATED TO CALL DR BEST, BECAUSE HE STATED TO HIM THAT HE WOULD PLACE THE DIALYSIS
[2018-05-24] MEDS ORDERED: LIDOCAINE 2%HCL (LOCAL ANESTH.) INJ 20ML MDV ONE (10:42)
--- NOTE | 2018-05-24 11:00 | NUR ---
SPOKE WITH DR BEST, REGARDING THE PLACEMENT OF THE TUNNEL CATHETER AND STATED HE WOULD BE ABLE TO DO IT NOW
[2018-05-24] MEDS ORDERED: ceFAZolin 1GM VL ONE (11:20)
[2018-05-24] MEDS ORDERED: HEPARIN SODIUM (PORCINE) 5000 UNITS/ML 1ML VIAL ONE (11:20)
[2018-05-24] MEDS ORDERED: HEPARIN 1,000 UNITS/ml 1ML VIAL ONE (11:21)
[2018-05-24] MEDS ORDERED: BUPIVACAINE 0.25% INJ 50ML VIAL ONE (11:21)
[2018-05-24] MEDS ORDERED: KETAMINE HCL 1 ML ONE (11:31)
[2018-05-24] MEDS ORDERED: fentaNYL CITRATE 100 MCG/2 ML VL ONE (11:31)
[2018-05-24] MEDS ORDERED: PROPOFOL 10 MG/ML 20 ML IV ONE (11:31)
[2018-05-24] MEDS ORDERED: MIDAZOLAM HCL 1MG/1ML-2 ML VIAL ONE ×2 (11:31→12:08)
[2018-05-24] MEDS ORDERED: SODIUM CHLORIDE LOCK 20 ML ONE (11:31)
--- NOTE | 2018-05-24 11:32 | NUR ---
patient taken to the or by the bed to have tunnel catheter placed for dialysis by dr gomez
[2018-05-24] MEDS ORDERED: HYDROmorphone HCL 2 MG/ML VL IV PRN (11:45)
[2018-05-24] MEDS ORDERED: ACCU-CHEK COMFORT CURVE STRIP VI ONE (11:45)
[2018-05-24] MEDS ORDERED: METOCLOPRAMIDE HCL 5MG/ml INJ 2ml VIAL IV ONE (11:45)
--- NOTE | 2018-05-24 12:00 | NUR ---
HOLD P.T. BECAUSE OF PROCEDURE TODAY.
--- NOTE | 2018-05-24 12:38 | NUR ---
DR NEWBERRY IN TO SEE THE PATIENT
--- NOTE | 2018-05-24 13:15 | NUR ---
REPORT FROM [facility] OR NURSE. PATIENT HAD LEFT CHEST ALEX CATH PLACED. CEDRIC TEGADERM DRESSING DRY AND INTACT. 550 ML TAKEN OUT OF TERAN. RESUME ORDERS PER HOSPITALIST.
--- NOTE | 2018-05-24 13:20 | NUR ---
[facility] CALLED AND STATED THEY WOULD BE SENDING SOMEONE, TO DO THE DIALYSIS
--- NOTE | 2018-05-24 13:35 | NUR ---
JAMISON Larson for [facility] called and stated she sent auth to [facility] and gave auth to [facility]
--- NOTE | 2018-05-24 13:35 | NUR ---
PATIENT BACK TO THE ROOM FROM OR , VERY SLEEPY BUT ABLE TO WAKE UP AND TALK TO USE
--- NOTE | 2018-05-24 13:45 | NUR ---
DR FRANCOIS IN TO SEE THE PATIENT
--- NOTE | 2018-05-24 14:45 | NUR ---
[facility] NURSE HERE AND DIALYSIS STARTED
--- NOTE | 2018-05-24 15:48 | NUR ---
PATIENT TOLERATING DIALYSIS AT THIS TIME, AT THE BEDSIDE
[2018-05-24 15:49] VITALS: BP 114/64
--- NOTE | 2018-05-24 16:59 | NUR ---
DIALYSIS STILL INFUSING AND PATIENT TOLERATING
--- NOTE | 2018-05-24 17:45 | NUR ---
DIALYSIS FINISHED AND REMOVED 3L AND PATIENT TOLERATED, SITTING UP IN THE BED TALKING TO HER FAMILY
--- NOTE | 2018-05-24 18:15 | NUR ---
MEDICATED FOR A H/A, WITH NORCO 8/10, SALINE LOCK TO THE RT HAND 20G AND 22G TO THE LFA BOTH INTACT AND PATENT, O2 AT 2L BY N/C, TERAN TO GRAVITY, SCD'S TO RANJITH LEGS, TUNNEL CATHETER TO THE LEFT SUBCLAVIAN DRESSING DRY AND INTACT, FAMILY AT THE BEDSIDE
[2018-05-24] MEDS: HYDROcodone-ACET 5/325MG TAB PO PRN (18:19)
--- NOTE | 2018-05-24 18:30 | NUR ---
SITTIGN UP IN BED EATING HER DINNER, SALINE LOCK TO THE RT HAND 20G AND 22G TO THE LFA BOTH INTACT AND PATENT, O2 AT 2L BY N/C, TERAN TO GRAVITY, SCD'S TO RANJITH LEGS, TUNNEL CATHETER TO THE LEFT SUBCLAVIAN DRESSING DRY AND INTACT, FAMILY AT THE BEDSIDE, WILL CONTINUE TO MONITOR AND GIVE REPORT TO THE NEXT SHIFT
[2018-05-24 20:00] VITALS: BP 114/61
[2018-05-24] MEDS ORDERED: EPOETIN ALFA 10,000 UNIT/1 ML VIAL SC ONE (21:00)
[2018-05-24] MEDS: ATORVASTATIN 20 MG TAB PO SCH (22:43)
[2018-05-25] VITALS: BP 92/54
[2018-05-25] MEDS: HYDROcodone-ACET 5/325MG TAB PO PRN ×3 (02:20→17:42)
[2018-05-25 04:00] VITALS: BP 108/49
[2018-05-25 05:40] LABS: Basophils # (auto) 0 uL; Basophils % (auto) 0.4 % (0.0-2.0); Eosinophils # (auto) 0.1 uL; Lymphocytes # (auto) 0.7 uL; Lymphocytes % (auto) 8.2 % (10.0-50.0); Mean Corpuscular Volume 82.1 fL (80.0-100.0); Neutrophils # (auto) 6.8 uL
[2018-05-25 05:42] LABS: Eosinophils % (auto) 0.7 % (0.0-7.0); Hematocrit 28.8 % (36.0-46.0); Hemoglobin 9.2 g/dL (12.2-16.2); Mean Corpuscular Hemoglobin 26.2 pg (28.0-32.0); Mean Corpuscular Hgb Conc. 31.9 g/dL (32.0-36.0); Monocytes # (auto) 0.9 uL; Monocytes % (auto) 10.2 % (0.0-12.0); Neutrophils % (auto) 80.5 % (37.0-80.0); Platelet Count (auto) 233 10^3/uL (140-450); Red Blood Cells 3.51 10^6/uL (4.0-5.20); White Blood Cell 8.5 10^3/uL (4.4-10.8)
--- NOTE | 2018-05-25 05:48 | NUR ---
Pt has remained stable throughout shift. Stated pain mid shift, [place] given. Pt was able to rest with pain med. Dressing to tunnel cath CDI. O2 sats dropped into low 80's so 2LPM nasal canula provided. Later still had issue so put nasal canula to 3LPM. Pt tends to breath more through her mouth when sleeping. No S/S of distress. Will continue to monitor.
[2018-05-25 05:49] LABS: Calcium 7.8 mg/dL (8.5-10.1); Magnesium 2.2 mg/dL (1.6-2.6); Potassium 3.6 mmol/L (3.5-5.1)
[2018-05-25 06:13] LABS: Red Cell Distribution Width 20.5 % (11.8-14.3)
[2018-05-25] MEDS: InsuLIN REG 1unit/0.01ml Soln (100units/ml) SC SCH ×4 (07:00→22:01)
[2018-05-25] MEDS: ACCU-CHEK COMFORT CURVE STRIP VI SCH ×4 (07:00→22:00)
[2018-05-25] MEDS: LEVOTHYROXINE SODIUM 50 MCG TAB PO SCH (08:04)
[2018-05-25] MEDS: cefTRIAXone 1GM/50ML D5W 50 ML IV SCH (09:09)
[2018-05-25 09:15] VITALS: BP 108/54
--- NOTE | 2018-05-25 09:17 | NUR ---
DESATURATION PATIENT TAKEN REMOVED NC FOR BREAKFAST, AFTER 5 MIN PT POX NOTED LOW AT 76% . PT DENIES SOB, NO DISTRESS NOTED. NC ON 2L PUT IN PLACE, POX INCREASED TO93% SHORTLY AFTER. MD TO BE NOTIFIED.
--- NOTE | 2018-05-25 09:30 | NUR ---
I.S PATIENT REACHING 750ML DURING INSPIRATION PROPERLY, WILL CONTINUE TO ENCOURAGE.
--- NOTE | 2018-05-25 09:44 | NUR ---
PATIENT OOB INTO CHAIR WITH PHYSICAL THERAPY. PT TOLERATED WELL. DENIES ANY DISTRESS.
--- NOTE | 2018-05-25 10:45 | NUR ---
PAGED TO NOTIFY OF DESATURATION THIS A.MDaisy STERN VERBALIZED UNDERSTANDING, MD REQUESTING TO SEE HOW PATIENT DID WITH PHYSICAL THERAPY, INFORMED, PER ANURADHA, P.T., " PATIENT WOULD BENEFIT FROM REHAB BUT PATIENT DOES NOT SEEM WILLING TO GO TO REHAB BUT IF IS WILLING AND ABLE HE COULD HELP AT HOME. " AWARE AND STATING PATIENT WOULD BENEFIT FROM REHAB, C.M TO BE CALLED TO FOLLOW UP ON CHAIR TIME.
--- NOTE | 2018-05-25 10:47 | NUR ---
ASSESSED PT FOR PRN MED NEB TX. NO SOB NOTED, NO RESPIRATORY DISTRESS, NO WHEEZING. PT ON 3L NC WITH SPO2 96%, 66, RR 22 WITH CLEAR/DIMINISHED BS. WILL CONTINUE TO MONITOR. Signed: 05/25/18 at 1514 by TIERRA CHAPARRO SRT <Co-Signature Required> Co-Signed: 05/25/18 at 1514 by RT CARLOS RT
--- NOTE | 2018-05-25 11:00 | NUR ---
SAMPLE EXAMINER ICU MANAGER CALLED TO GET AN UPDATE ON CHAIR TIME/ DC PLANNING. PER MATIAS, PATIENT HAS BEEN AUTHORIZED FOR IS STILL PENDING CHAIR TIME. PER MATIAS, PROCESSES IS SLOWER ON WEEKENDS THEREFORE IT MIGHT BE POSSIBLE TO NOT HAVE CHAIR TIME TODAY. PATIENT AND FAMILY AT BEDSIDE AWARE.
--- NOTE | 2018-05-25 12:00 | NUR ---
Family updated on pt status Family of FAITH RODAS updated on patient's status and condition. All questions and concerns addressed. verbalized understanding, aware of wifes request to go home and not rehab, husbands agrees with and stating he is willing to help and as he has been able to prior to admission. Explained to patient and family of benefits of rehab at this time. and verbalized understanding and continues to request to go home. MD paged to notify of patients current wishes. Md to speak to patient.
[2018-05-25 13:02] VITALS: BP 114/53
--- NOTE | 2018-05-25 13:28 | NUR ---
FOLLOW UP CHAIR TIME SPOKE TO TALIA FROM [facility]. TALIA REQUESTING RECORDS TO BE FAXED OVER TO [phone]. RECORDS REQUESTED FAXED WITH COVER SHEET. TALIA STATING ONCE ALL PAPER WORK IS OVER LOOKED IT IS POSSIBLE TO HAVE A CHAIR TIME TODAY. IF ANY ARRANGEMENTS ARE COMPLETED TALIA TO CALL WITH INFORMATION.
--- NOTE | 2018-05-25 15:15 | NUR ---
MD AT BEDSIDE MD UPDATED PATIENT ON PLAN OF CARE. MD STATED PATIENT MORE LIKELEY WILL BE HAVE ALL ORDERS ARRANGED BY Sunday. PATIENT AWARE. SEE MD ORDERS.
[2018-05-25 16:13] VITALS: BP 120/61
--- NOTE | 2018-05-25 16:20 | NUR ---
PAGED PATIENT AND CONCERNED THAT PATIENT HAS BEEN OFF XARELTO FOR PENDING PARACENTESIS. THEY ARE UNSURE IF MEDICATIONS SHOULD BE STARTED AND TX WILL BE DELAYED. PATIENT ALSO CONCERNED OF HAND TREMORS SHE HAS BEEN HAVING EVEN BEFORE ADMISSION AND WOULD LIKE TO SEE IF IT CAN BE ADDRESSED WHILE IN HOSPITAL. MG PAGED, AWAITING CALLBACK.
[2018-05-25] MEDS ORDERED: WARFARIN SODIUM 5 MG TAB PO ONE (17:00)
--- NOTE | 2018-05-25 17:12 | NUR ---
CALLED BACK, SEE NEW ORDERS Addendum: 05/25/18 at 1712 by Meaghan Farrar RN COUMADIN TO BE HELD, PENDING POSSIBLE PARACENTESIS. Addendum: 05/25/18 at 1940 by Meaghan Farrar RN PER DR. NEWBERRY, PATIENT TO BE DOWNGRADED IF OK WITH DR. FRANCOIS. AWAITING TO MAKE ROUNDS.
--- NOTE | 2018-05-25 19:33 | NUR ---
PATIENT ASSISTED OOB INTO CHAIR BY PHYSICAL THERAPY. PT SITTING UP IN CHAIR AWAITING DINNER TRAY. PARTIAL LINEN CHANGE COMPLETED
--- NOTE | 2018-05-25 19:40 | NUR ---
Opening Shift Note Assumed care of patient, awake and alert. Pt back to bed with assistance due to U/S at bedside. Breathing even and nonlabored, on O2NC 2LPM, No S/S of distress/SOB. Mild pain to the tunneled cath site. Saline locks x2 at right hand and left FA both flushed well, CDI site. Mendoza's cath hung to gravity with clear yellowish urine. Bed in low position, call light within reach, fall and safety precaution in place, all alarms are audible. Instructed on POC and to call for assist PRN, will continue to monitor for changes Q1hr and PRN.
[2018-05-25 20:18] VITALS: BP 124/59
[2018-05-25] MEDS: ATORVASTATIN 20 MG TAB PO SCH (22:00)
[2018-05-25] MEDS: ACETAMINOPHEN 325 MG TAB PO PRN (22:08)
--- NOTE | 2018-05-25 22:53 | NUR ---
Respiratory note: PT SEEN AND ASSESSED FOR PRN MED NEB TX AT 2253. TX NOT INDICATED AT THIS TIME. NO SIGNS OF DISTRESS NOTED. PT WAS SLEEPING WHEN ENTERING THE ROOM. HR 59 RR 23 POX 99%.
[2018-05-26] VITALS: BP 104/61
--- NOTE | 2018-05-26 00:30 | NUR ---
Condition update/ headache Pt woke up and c/o headache 11/02, asked for pain medication. V/S stable, BP 104/61, no fever. Re-positioned Pt for comfort and will administer pain med as order. Continue care.
[2018-05-26] MEDS: HYDROcodone-ACET 5/325MG TAB PO PRN ×4 (00:41→20:52)
--- NOTE | 2018-05-26 02:35 | NUR ---
Condition update Pt sleeping, HR 58-60/min, breathing even and nonlabored, condition stable. Continue care.
--- NOTE | 2018-05-26 03:59 | NUR ---
Condition update Py lying in bed with eyes closed, v/s and condition stable. On O2NC 2 LPM, breathing even and nonlabored, No apnea or desaturation observed. Continue care.
[2018-05-26 04:00] VITALS: BP 123/69
--- NOTE | 2018-05-26 05:15 | NUR ---
Summary Pt slept on and off through out the night. C/O pain at tunneled cath once 11/02 and headache 11/02 once, pain controlled with [place] and Tylenol. V/S stable, no fever, on O2NC 2LPM, no desaturation. Tunneled cath site, CDI. Refused AM care because wanted to sleep more. Continue care and will endorsed care to day shift.
[2018-05-26 05:37] LABS: Basophils # (auto) 0 uL; Eosinophils # (auto) 0.1 uL; Lymphocytes # (auto) 0.8 uL; Monocytes # (auto) 0.8 uL; Red Blood Cells 3.42 10^6/uL (4.0-5.20)
[2018-05-26 05:40] LABS: Basophils % (auto) 0.3 % (0.0-2.0); Eosinophils % (auto) 1.1 % (0.0-7.0); Hematocrit 28.3 % (36.0-46.0); Lymphocytes % (auto) 10.5 % (10.0-50.0); Mean Corpuscular Hemoglobin 26.2 pg (28.0-32.0); Mean Corpuscular Hgb Conc. 31.7 g/dL (32.0-36.0); Mean Corpuscular Volume 82.8 fL (80.0-100.0); Monocytes % (auto) 10.7 % (0.0-12.0); Neutrophils # (auto) 6.1 uL; Neutrophils % (auto) 77.4 % (37.0-80.0); Platelet Count (auto) 196 10^3/uL (140-450); White Blood Cell 7.9 10^3/uL (4.4-10.8)
[2018-05-26 05:49] LABS: INR 1.05 (0.9-1.15); Partial Thromboplastin Time 29.1 sec (23.78-33.04); Prothrombin Time 11.2 sec (9.27-12.13)
[2018-05-26 05:57] LABS: Red Cell Distribution Width 20.5 % (11.8-14.3)
[2018-05-26 05:59] LABS: Potassium 3.7 mmol/L (3.5-5.1)
[2018-05-26 06:09] LABS: BUN/Creatinine Ratio 17.3; Calcium 8.5 mg/dL (8.5-10.1); Magnesium 2.3 mg/dL (1.6-2.6)
[2018-05-26] MEDS: LEVOTHYROXINE SODIUM 50 MCG TAB PO SCH (06:37)
--- NOTE | 2018-05-26 06:50 | NUR ---
Eisenberg catheter dc'd Order to discontinue eisenberg catheter. Eisenberg dc'd with clean technique following deflation of balloon. Patient tolerated well with no complaints of pain. Continue care.
[2018-05-26] MEDS: ACCU-CHEK COMFORT CURVE STRIP VI SCH ×4 (06:55→23:18)
[2018-05-26] MEDS: InsuLIN REG 1unit/0.01ml Soln (100units/ml) SC SCH ×4 (06:55→23:19)
--- NOTE | 2018-05-26 07:45 | NUR ---
OPENING SHIFT NOTE Report received from Rosette CARRASCO, care assumed. Patient is asleep at this time. No distress noted at this time. Afebrile. Sinus bradycardia on bedside monitor, BP stable at this time. Pulses palpable bilaterally. Lungs clear anterior. Patient on 2 l nasal cannula, denies shortness of breath. Abdomen large, and distended, but nontender. Mendoza catheter d/c this morning. See skin assessment. Patient repositioned on side. Bed locked in lowest position with call light within reach. Patient instructed to call for assistance. Will continue to monitor.
[2018-05-26 08:00] VITALS: BP 130/67
[2018-05-26] MEDS: cefTRIAXone 1GM/50ML D5W 50 ML IV SCH (08:43)
--- NOTE | 2018-05-26 10:10 | NUR ---
FAMILY Patient at bedside. Updated on plan of care. No distress noted.
--- NOTE | 2018-05-26 11:19 | NUR ---
PAIN Patient complains of pain at tunnel catheter site. No signs of bleeding or infection noted. Patient medicated with [place] PRN.
--- NOTE | 2018-05-26 11:36 | NUR ---
ROUNDS at bedside speaking with patient and family regarding plan of care. He is aware that Lovenox is currently being held due to possible paracentesis today, unable to reach radiology department for ETA. Will continue to attempt to reach, if unable, Lovenox will be administered.
[2018-05-26 12:00] VITALS: BP 115/52
[2018-05-26 13:05] LABS: INR 1.05 (0.9-1.15); Prothrombin Time 11.2 sec (9.27-12.13)
--- NOTE | 2018-05-26 13:09 | NUR ---
ELIMINATION Patient urinated in bedpan do to being drowsy. Patient urinated 300 cc clear yellow urine.
[2018-05-26] MEDS: ACETAMINOPHEN 325 MG TAB PO PRN (13:43)
--- NOTE | 2018-05-26 13:47 | NUR ---
Nutrition Follow-up Notes Wt.: 84.8 kg today. Pt's on oxygen via nasal cannula, eating breakfast, family members at bedside, denies any discomfort when rounded this morning. 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 Pt had dialysis 05/24/18, currently on Carb: 60 gms/meal, Cardiac: 2 gms Na, Low Chol, Low Fat diet with adequate PO intake aeb 88% consumed meals (x5) in last 2.5 days. Provide verbal and written nutrition educ. re: current prescribed therapeutic diet as well as FDI for Coumadin (however pt stated that it has been held d/t possible paracentesis) and she verbalized understanding. Noted pt's for active Radiologist and Neurology consults. Est. Needs: 1350 kcal to 1800 kcal (15-20 kcal/kgBW), 73 gms to 91 gms pro (0.8-1.0 gms/kgBW). Will continue to monitor pertinent labs and reassess nutrient need prn Labs: Gluc 117 H, CO2 36 H, BUN 57 H, Cr 3.29 H; Uric acid 14.4 H, Tpro 6.2 L, Alb 3.2 L Skin: Jesus Alberto scale 17, mod risk, pt's left forearm skin tear, sacrum blanchable redness per plant clerk. GI: Pt's no bowel activity since 05/21/18 per plant clerk. PES: Altered nutrition related lab values r/t current/chronic medical condition aeb hyperglycemia, hyperchloremia, elev. renal labs, uric acid, phos, hypocalcemia and mild hypoalbuminemia Obesity r/t food intake more than body requirement aeb 200% IBW, BMI 39.1 kg/m2 and increased body adiposity Will continue to monitor PO intake, skin status, pertinent labs and weight trend. F/u in 3 to 5 days. Rec.: 1.) Consider Consistent Std Carb: 60gms/meal, Renal Standard, Cardiac: 2 gms Na, Low Chol, Low Fat, Low Purine diet. 2.) If Albumin level continues trending down, consider Prostat 1 pkt BID. 3.) Consider daily Nephrovite and Asc acid 500 mgs BID prn. 4.) Continue close supervision with meals 5.) Refer to CDE/RD for further nutrition educ. and weight monitoring upon discharge. 6.) Continue current plan of care.
[2018-05-26] MEDS: ENOXAPARIN SOD 100 MG/1 ML SYRINGE SC SCH (13:56)
--- NOTE | 2018-05-26 13:58 | NUR ---
PHYSICAL THERAPY Patient out of bed ambulating around nursing unit with physical therapy, walker, and portable oxygen. No distress noted.
--- NOTE | 2018-05-26 15:00 | NUR ---
LINEN Complete linen change performed. Patient wanting to get back in bed. Patient ambulated with standby assistance. Patient tolerated activity fair. Bed locked in lowest position, call light within reach.
--- NOTE | 2018-05-26 15:35 | NUR ---
HEADACHE Patient complaining of headache continuing despite pain medication given earlier. Patient repositioned in bed. Will continue to monitor.
--- NOTE | 2018-05-26 15:38 | NUR ---
NEUROLOGY CONSULT at bedside for consult.
[2018-05-26 17:00] VITALS: BP 109/55
[2018-05-26] MEDS ORDERED: WARFARIN SODIUM 2.5 MG TAB PO ONE (17:00)
--- NOTE | 2018-05-26 17:58 | NUR ---
COUMADIN Medication held for possible paracentesis tomorrow am.
[2018-05-26 19:43] VITALS: BP 137/67
[2018-05-26] MEDS: ATORVASTATIN 20 MG TAB PO SCH (23:18)
[2018-05-27] VITALS: BP 153/83
[2018-05-27] MEDS: HYDROcodone-ACET 5/325MG TAB PO PRN ×3 (02:31→22:16)
[2018-05-27 04:00] VITALS: BP 124/64
[2018-05-27 05:39] LABS: Basophils # (auto) 0 uL; Eosinophils # (auto) 0.1 uL; Hematocrit 28.7 % (36.0-46.0); Lymphocytes # (auto) 0.7 uL; Red Blood Cells 3.48 10^6/uL (4.0-5.20)
[2018-05-27 05:41] LABS: Basophils % (auto) 0.6 % (0.0-2.0); Eosinophils % (auto) 1.9 % (0.0-7.0); Lymphocytes % (auto) 10.9 % (10.0-50.0); Mean Corpuscular Hemoglobin 25.9 pg (28.0-32.0); Mean Corpuscular Hgb Conc. 31.3 g/dL (32.0-36.0); Mean Corpuscular Volume 82.6 fL (80.0-100.0); Monocytes # (auto) 0.7 uL; Monocytes % (auto) 10.4 % (0.0-12.0); Neutrophils % (auto) 76.2 % (37.0-80.0); Platelet Count (auto) 190 10^3/uL (140-450); White Blood Cell 6.5 10^3/uL (4.4-10.8)
[2018-05-27 05:49] LABS: INR 1.05 (0.9-1.15); Partial Thromboplastin Time 31.5 sec (23.78-33.04); Prothrombin Time 11.2 sec (9.27-12.13)
[2018-05-27 05:52] LABS: Red Cell Distribution Width 20.5 % (11.8-14.3)
[2018-05-27 06:13] LABS: Potassium 3.8 mmol/L (3.5-5.1)
[2018-05-27 06:22] LABS: Albumin 2.7 g/dL (3.4-5.0); BUN/Creatinine Ratio 20.1; Bilirubin, Total 0.3 mg/dL (0.2-1.0); Calcium 9.1 mg/dL (8.5-10.1); Magnesium 2.5 mg/dL (1.6-2.6); Total Protein 6.2 g/dL (6.4-8.2)
[2018-05-27] MEDS: ACCU-CHEK COMFORT CURVE STRIP VI SCH ×4 (07:00→22:17)
--- NOTE | 2018-05-27 07:45 | NUR ---
Opening Shift Note Assumed care of patient, sleeping at this time. No S/S of distress/SOB. Patient on 2L NC. IV on right hand and left FA patent, dry, and intact, saline locked. Bed in the lowest position, bed rails up x2. Will continue to monitor for changes Q1hr and PRN.
[2018-05-27 08:00] VITALS: BP 130/91
[2018-05-27] MEDS: LEVOTHYROXINE SODIUM 50 MCG TAB PO SCH (08:05)
[2018-05-27] MEDS: InsuLIN REG 1unit/0.01ml Soln (100units/ml) SC SCH ×4 (08:06→22:17)
[2018-05-27] MEDS ORDERED: SODIUM CHL 0.9% 1000 ML BAG XX ONE (08:15)
--- NOTE | 2018-05-27 08:15 | NUR ---
DR FRANCOIS IN TO SEE THE PATIENT AND ORDERED DIALYSIS FOR TODAY
--- NOTE | 2018-05-27 08:40 | NUR ---
SITTING UP IN THE BED EATING HER BREAKFAST
--- NOTE | 2018-05-27 09:00 | NUR ---
EXPLAIN MEDICATIONS TO THE PATIENT REGARDING THE DOSAGE, USAGE, AND THE SIDE EFFECTS, VERBALIZED SHE UNDERSTOOD ABOUT THE ANTIBIOTICS
[2018-05-27] MEDS: cefTRIAXone 1GM/50ML D5W 50 ML IV SCH (09:05)
[2018-05-27] MEDS: ENOXAPARIN SOD 100 MG/1 ML SYRINGE SC SCH (10:00)
--- NOTE | 2018-05-27 10:15 | NUR ---
INTO SEE THE PATIENT
--- NOTE | 2018-05-27 10:45 | NUR ---
WALKING WITH PT AROUND THE UNIT USING A WALKER AND TOLERATED BACK TO SIT IN THE CHAIR
--- NOTE | 2018-05-27 11:45 | NUR ---
GOTTEN BACK INTO THE BED
[2018-05-27 11:50] VITALS: BP 142/73
--- NOTE | 2018-05-27 12:30 | NUR ---
dr skinner here to do the paracentesis p
--- NOTE | 2018-05-27 13:00 | NUR ---
PARACENTESIS COMPLETE AND REMOVED 2150L OF FLUID
--- NOTE | 2018-05-27 13:02 | NUR ---
DR AKINS IN TO SEE THE PATIENT, STATED TO PLAN DISCHARGE FOR TOMORROW
--- NOTE | 2018-05-27 13:23 | NUR ---
STATES SHE ONLY WANTS TO DRINK, HER TEA FOR LUNCH
--- NOTE | 2018-05-27 14:45 | NUR ---
patient tolerating dialysis dozing and talking on and of
--- NOTE | 2018-05-27 15:45 | NUR ---
still tolerating dialysis, no problem
[2018-05-27 15:50] VITALS: BP 127/74
[2018-05-27] MEDS: ACETAMINOPHEN 325 MG TAB PO PRN (16:14)
--- NOTE | 2018-05-27 16:15 | NUR ---
TYLENOL GIVEN FOR H/A,
--- NOTE | 2018-05-27 16:45 | NUR ---
DIALYSIS FINISHED AND REMOVED 2L OF FLUID B/P 143/ 67 PATIENT TOLERATED WELL
--- NOTE | 2018-05-27 16:56 | NUR ---
GOTTEN UP TO DANGLE ON THE SIDE OF THE BED, BACK TO SEE THE PATIENT
[2018-05-27] MEDS ORDERED: WARFARIN SODIUM 2.5 MG TAB PO ONE (17:00)
--- NOTE | 2018-05-27 17:35 | NUR ---
GOTTEN UP TO SIT IN THE CHAIR, LEFT TO GO HOME
[2018-05-27 18:10] LABS: Hepatitis B Surface Antigen Negative (Negative); Hepatitis C Antibody Negative (Negative)
--- NOTE | 2018-05-27 18:33 | NUR ---
SITTING UP IN THE CHAIR EATING HER DINNER, NO HELP NEEDED, O2 AT 2L BY N/C, ABLE TO USE THE BSC SALINE LOCK TO THE RT HAND 20G AND LFA 22G BOTH INTACT AND PATENT, SCD'S OFF AT THIS TIME, A/O TIMES 4, DIALYSIS TO THE LEFT UPPER CHEST WALL INTACT, WILL CONTINUE TO MONITOR AND GIVE REPORT TOT HE NEXT SHIFT
[2018-05-27 19:50] VITALS: BP 126/62
--- NOTE | 2018-05-27 20:00 | NUR ---
OPEN ASSUMED CARE OF FEMALE PT A&O X 4. 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 O2 VIA N/C 2L. DIALYSIS CATH OBSERVED TO L. SUBCLAVIA WITH CDI DRESSING. BANDAID TO L. SIDE OF ABDOMEN S/P PARACENTESIS TO DAY. 20 G IV TO R. HAND S/L B &P, 22 G TO L F/A S/L B&P. PT WITH 3+ PITTING EDEMA TO RANJITH LOWER EXT'S. ABRASION OBSERVED TO R. SIDE OF BACK. OPTIFOAM GENTLE SACRAL DRESSING IN PLACE OVER BLANCHABLE PINK SKIN WHICH IS INTACT. PT DENIES PAIN. BED IN LOWEST LOCKED POSITION. SIDE RAILS UP X 2. CALL [facility] IN REACH. ORDERS REVIEWED. SEE PHYSICAL ASSESSMENT FOR FURTHER INFORMATION.
[2018-05-27] MEDS ORDERED: EPOETIN ALFA 4,000 UNIT/ML VL SC ONE (21:00)
--- NOTE | 2018-05-27 22:15 | NUR ---
PAIN PT C/O PAIN 09/02 TO L. SHOULDER FOR WHICH PT STATES IS CHRONIC PAIN. PT MEDICATED WITH NORCO PO PER ORDER (SEE EMAR).
[2018-05-27] MEDS: ATORVASTATIN 20 MG TAB PO SCH (22:16)
[2018-05-28] VITALS: BP 135/74
--- NOTE | 2018-05-28 | NUR ---
GI//ACTIVITY PT ASSISTED OOB TO BEDSIDE COMMODE. PT WITH WEAK GAIT. PT ABLE TO HAVE SOFT FORMED BM. ABLE TO URINATE 300 ML LIGHT PAYAL URINE. PT ASSISTED TO CLEANSE PER AREA. ASSISTED BACK TO BED. CALL [facility] IN REACH.
[2018-05-28] MEDS: LEVOTHYROXINE SODIUM 50 MCG TAB PO SCH (05:42)
[2018-05-28] MEDS: HYDROcodone-ACET 5/325MG TAB PO PRN (05:42)
[2018-05-28] MEDS: ACCU-CHEK COMFORT CURVE STRIP VI SCH ×3 (05:51→17:00)
[2018-05-28] MEDS: InsuLIN REG 1unit/0.01ml Soln (100units/ml) SC SCH ×3 (05:51→17:00)
[2018-05-28 06:25] LABS: INR 1.05 (0.9-1.15); Prothrombin Time 11.2 sec (9.27-12.13)
[2018-05-28 07:15] LABS: Basophils # (auto) 0 uL; Hemoglobin 9.3 g/dL (12.2-16.2); Lymphocytes # (auto) 0.7 uL; Monocytes # (auto) 0.6 uL; Nucleated Red Blood Cells % 0.1 %; White Blood Cell 5.3 10^3/uL (4.4-10.8)
[2018-05-28 07:20] LABS: Basophils % (auto) 0.6 % (0.0-2.0); Eosinophils # (auto) 0.1 uL; Eosinophils % (auto) 1.6 % (0.0-7.0); Hematocrit 29.5 % (36.0-46.0); Lymphocytes % (auto) 13.7 % (10.0-50.0); Mean Corpuscular Hemoglobin 26.2 pg (28.0-32.0); Mean Corpuscular Hgb Conc. 31.4 g/dL (32.0-36.0); Mean Corpuscular Volume 83.4 fL (80.0-100.0); Monocytes % (auto) 11.3 % (0.0-12.0); Neutrophils # (auto) 3.8 uL; Neutrophils % (auto) 72.8 % (37.0-80.0); Platelet Count (auto) 189 10^3/uL (140-450); Red Blood Cells 3.53 10^6/uL (4.0-5.20)
[2018-05-28 07:30] LABS: Red Cell Distribution Width 20.2 % (11.8-14.3)
[2018-05-28 07:45] LABS: BUN/Creatinine Ratio 14.2; Calcium 8.6 mg/dL (8.5-10.1); Potassium 4.1 mmol/L (3.5-5.1)
--- NOTE | 2018-05-28 07:55 | NUR ---
Opening Shift Note Assumed care of patient. Patient sleeping. Patient on 2L NC. IV 20G right hand and 22G left forearm dry patent and intact, saline lock. Bed in the lowest position, bed rails up x2, call light with in reach. No S/S of distress/SOB or pain. Instructed on POC and to call for assist PRN, will continue to monitor for changes Q1hr and PRN.
[2018-05-28 08:00] VITALS: BP 133/76
--- NOTE | 2018-05-28 09:09 | NUR ---
Pt's chair time has been arranged with Jony Cote) for Sunday, Sunday, and Sunday at 12:30. Pt can start as soon as tomorrow with dialysis and will need to arrive one hour prior to chair time for her first dialysis facility treatment.
[2018-05-28] MEDS: cefTRIAXone 1GM/50ML D5W 50 ML IV SCH (09:22)
[2018-05-28] MEDS: ENOXAPARIN SOD 100 MG/1 ML SYRINGE SC SCH (09:30)
--- NOTE | 2018-05-28 09:30 | NUR ---
EXPLAIN MEDICATION TO THE PATIENT REGARDING THE DOSAGE, USAGE, AND THE SIDE EFFECTS, VERBALIZED SHE UNDERSTOOD AND MEDS GIVEN ORDERED
--- NOTE | 2018-05-28 10:05 | NUR ---
Patient sitting on side of bed eating breakfast.
--- NOTE | 2018-05-28 10:44 | NUR ---
INFORMED BY JIN PRIMARY RN PT WILL LIKELY GO HOME ON/NEED HOME 02. JIN KNOWS WE WILL NEED ABG.
[2018-05-28] MEDS: ACETAMINOPHEN 325 MG TAB PO PRN (10:55)
--- NOTE | 2018-05-28 10:57 | NUR ---
MEDICATED FOR HEADACHE 10/02 WITH TYLENOL, UP TO THE BSC WITH MINIMAL HELP
[2018-05-28 12:00] VITALS: BP 116/52
--- NOTE | 2018-05-28 13:10 | NUR ---
Patients Jovan left and states he will be back later. Patient appears to be sleeping.
--- NOTE | 2018-05-28 13:13 | NUR ---
PT 1st am visit, patient requested to comeback before lunch. 2nd am visit, patient stated she is not yet ready to do PT or OOB. Addendum: 05/28/18 at 1314 by JOSH CHANG PTT Amended: Links added.
--- NOTE | 2018-05-28 14:05 | NUR ---
Patient sitting in chair eating lunch and watching TV.
--- NOTE | 2018-05-28 15:37 | NUR ---
per Marsha at [facility], she contacted [facility] since they have not seen pt as of yet. Marsha informed them pt may be d/c today or tomorrow. IF pt needs home 02, the dme company to use is [employer] ph [phone]. At the time of this note, no d/c order or abg done.
[2018-05-28 16:00] VITALS: BP 131/67
--- NOTE | 2018-05-28 16:15 | NUR ---
Dr. Boykin at bedside.
--- NOTE | 2018-05-28 16:20 | NUR ---
Dr. Boykin put in discharge order for patient to go home today.
--- NOTE | 2018-05-28 16:30 | NUR ---
PATIENT TO GET O2 DUE TO O2 SATURATION DROPPING TO 85% WHEN SHE IS SLEEPING
[2018-05-28 16:53] VITALS: BP 124/61
[2018-05-28] MEDS ORDERED: WARFARIN SODIUM 2.5 MG TAB PO ONE (17:00)
--- NOTE | 2018-05-28 17:00 | NUR ---
INFORMATION FAXED TO THE [employer] REGARDING THE O2 NEED, SPOKE WITH VIVIANE DIMENSIONAL ENGINEER AND STATED THAT SHE HAD CALLED THEM AND IT WAS OKAY FOR HER TO GET THE OXYGEN AT HOME
--- NOTE | 2018-05-28 18:06 | NUR ---
Spoke with Dr. Boykin about oxygen not being delivered tonight. Dr. Boykin said ok to discharge home tonight. is aware Oxygen not being delivered tonight
--- NOTE | 2018-05-28 18:30 | NUR ---
STILL TALKING WITH [employer] TO GET THE O2 SENT TO THE PATIENT'S HOUSE, FAXED INFORMATION TO SHOW THAT THE PATIENT O2 SAT WAS IN THE 84% RANGE TODAY WHEN SHE WAS SLEEPING
--- NOTE | 2018-05-28 18:48 | NUR ---
PATIENT DENIES DINNER WAITING ON DISCHARGE PAPER WORK TO GO HOME. WAITING FOR RESPONSE FOR HOME O2. O2 AT 2L BY N/C, ABLE TO USE THE BSC SALINE LOCK TO THE RT HAND 20G AND LFA 22G BOTH INTACT AND PATENT, SCD'S OFF AT THIS TIME, A/O TIMES 4, DIALYSIS TO THE LEFT UPPER CHEST WALL INTACT, WILL CONTINUE TO MONITOR AND GIVE REPORT TOT HE NEXT SHIFT
--- NOTE | 2018-05-28 19:00 | NUR ---
removed 22g catheter from the lfa intact and dressing applied, waiting to hear from the [facility] to see if they will supply o2 for the patient
--- NOTE | 2018-05-28 19:40 | NUR ---
PATIENT FINALLY GET O2 DELIVERED TO THE HOUSE BY [employer]
== END 2018-05-28 20:00 | disposition home health service (06) | DRG 286 ==
LOC: EDBD 05:59 → ER 05:59 → TELE 10:19 → DOU IN ICU 05-22 18:21
PROVIDERS: ADMIT Nurse Practitioner Acute Care; ATTEND Internal Medicine
PROC: 0W9G3ZZ Drainage of Peritoneal Cavity, Percutaneous Approach (ICD-10-PCS; principal; 2018-05-21)
PROC: B2141ZZ Fluoroscopy of Right Heart using Low Osmolar Contrast (ICD-10-PCS; 2018-05-24)
PROC: 5A1D70Z Performance of Urinary Filtration, Intermittent, Less than 6 Hours Per Day (ICD-10-PCS; 2018-05-24)
PROC: 02H633Z Insertion of Infusion Device into Right Atrium, Percutaneous Approach (ICD-10-PCS; 2018-05-24)
PROC: 0W9G3ZZ Drainage of Peritoneal Cavity, Percutaneous Approach (ICD-10-PCS; 2018-05-27)
PROC: 5A1D70Z Performance of Urinary Filtration, Intermittent, Less than 6 Hours Per Day (ICD-10-PCS; 2018-05-27)
DX: I13.2 Hypertensive heart and chronic kidney disease with heart failure and with stage 5 chronic kidney disease, or end stage renal disease (principal); I50.43 Acute on chronic combined systolic (congestive) and diastolic (congestive) heart failure; N18.6 End stage renal disease; E44.1 Mild protein-calorie malnutrition; Z68.41 Body mass index [BMI] 40.0-44.9, adult; R18.8 Other ascites; N17.9 Acute kidney failure, unspecified; J90 Pleural effusion, not elsewhere classified; N39.0 Urinary tract infection, site not specified; G93.40 Encephalopathy, unspecified; J98.11 Atelectasis; E87.5 Hyperkalemia; E11.22 Type 2 diabetes mellitus with diabetic chronic kidney disease; N18.9 Chronic kidney disease, unspecified; E03.9 Hypothyroidism, unspecified; I48.0 Paroxysmal atrial fibrillation; I25.5 Ischemic cardiomyopathy; K80.20 Calculus of gallbladder without cholecystitis without obstruction; D64.9 Anemia, unspecified; E11.40 Type 2 diabetes mellitus with diabetic neuropathy, unspecified; E78.5 Hyperlipidemia, unspecified; G25.0 Essential tremor; D35.02 Benign neoplasm of left adrenal gland; I25.10 Atherosclerotic heart disease of native coronary artery without angina pectoris; I50.82 Biventricular heart failure; W01.0XXA Fall on same level from slipping, tripping and stumbling without subsequent striking against object, initial encounter; Z99.2 Dependence on renal dialysis; Y93.89 Activity, other specified; Y92.89 Other specified places as the place of occurrence of the external cause; Z79.01 Long term (current) use of anticoagulants; Z79.899 Other long term (current) drug therapy; Z82.49 Family history of ischemic heart disease and other diseases of the circulatory system; Z91.14 Patient's other noncompliance with medication regimen; Z95.1 Presence of aortocoronary bypass graft; Z95.5 Presence of coronary angioplasty implant and graft; Z82.5 Family history of asthma and other chronic lower respiratory diseases
CPT/HCPCS: 36415; 49083; 51702; 71045; 74176; 76700; 76705; 76942; 80048; 80053; 80198; 81001; 82728; 82962; 83540; 83550; 83735; 83880; 84100; 84132; 84443; 84484; 84550; 85025; 85610; 85730; 86803; 87081; 87340; 90935; 93005; 94640; 94761; 96374; 96375; 97163; A6257; G0378; J0610; J0690; J0696; J0885; J1642; J1815; J2250; J2704; J3490; P9047

== ENCOUNTER 2018-07-30 12:14 | Emergency (ER) | payer BC ==
[~2018-07-30] VITALS: Ht 160 cm; Wt 78.0 kg
[~2018-07-30 12:14] MED LIST changes: +ALBUAER3 IN; -AMIO100T3 PO; +APIX5TAB OR; -BUME1TAB PO; +HYDR-4798 PO; -HYDR-531 PO; -MET5XLT PO; -POTA20TA53 PO; -SPIR25TA88 PO
[2018-07-30 13:28] LABS: Basophils # (auto) 0.1 uL; Basophils % (auto) 0.9 % (0.0-2.0); Eosinophils # (auto) 0.1 uL; Eosinophils % (auto) 2.2 % (0.0-7.0); Hematocrit 36.6 % (36.0-46.0); Hemoglobin 11.9 g/dL (12.2-16.2); Lymphocytes # (auto) 0.9 uL; Lymphocytes % (auto) 14.1 % (10.0-50.0); Mean Corpuscular Hemoglobin 29.6 pg (28.0-32.0); Mean Corpuscular Hgb Conc. 32.4 g/dL (32.0-36.0); Mean Corpuscular Volume 91.2 fL (80.0-100.0); Monocytes # (auto) 0.5 uL; Neutrophils % (auto) 74.8 % (37.0-80.0); Platelet Count (auto) 207 10^3/uL (140-450); Red Blood Cells 4.01 10^6/uL (4.0-5.20); White Blood Cell 6.7 10^3/uL (4.4-10.8)
[2018-07-30 13:43] LABS: INR 0.97 (0.9-1.15); Partial Thromboplastin Time 24.3 sec (23.78-33.04); Prothrombin Time 10.4 sec (9.27-12.13)
[2018-07-30 14:05] LABS: Albumin 3.4 g/dL (3.4-5.0); Anion Gap 8 (5-15); Calcium 8.8 mg/dL (8.5-10.1); Carbon Dioxide 28 mmol/L (21-32); Chloride 102 mmol/L (98-107); Glucose 206 mg/dL (74-106); Potassium 4.5 mmol/L (3.5-5.1); Sodium 138 mmol/L (136-145)
[2018-07-30 14:11] LABS: Alanine Aminotransferase 55 U/L (13-56); Alkaline Phosphatase 260 U/L (45-117); Aspartate Aminotransferase 42 U/L (15-37); BUN/Creatinine Ratio 25.9; Bilirubin, Total 0.5 mg/dL (0.2-1.0); GFR African American 19 mL/min; GFR Non-African American 15 mL/min; Total Protein 7.4 g/dL (6.4-8.2)
[2018-07-30 14:41] LABS: Blood Urea Nitrogen 84 mg/dL (7-18)
[2018-07-30 15:12] LABS: Urine Bacteria FEW /hpf (None Seen); Urine Blood Negative /uL (Negative); Urine Specific Gravity 1.015 (1.001-1.035); Urine WBC 1 /hpf (0 - 5)
[2018-07-30] MEDS ORDERED: HEPARIN SODIUM (PORCINE) 5000 UNITS/ML 1ML VIAL ONE (15:49)
[2018-07-30] MEDS ORDERED: HEPARIN SODIUM (PORCINE) 5000 UNITS/ML 1ML VIAL IV ONE (16:30)
[2018-07-30 17:20] VITALS: BP 153/66
== END 2018-07-30 17:10 | disposition home or self-care (01) ==
LOC: ER 12:22
DX: T82.41XA Breakdown (mechanical) of vascular dialysis catheter, initial encounter (principal); E11.22 Type 2 diabetes mellitus with diabetic chronic kidney disease; I13.2 Hypertensive heart and chronic kidney disease with heart failure and with stage 5 chronic kidney disease, or end stage renal disease; N18.6 End stage renal disease; E78.5 Hyperlipidemia, unspecified; I25.2 Old myocardial infarction; Z99.2 Dependence on renal dialysis; Z79.4 Long term (current) use of insulin; Z95.1 Presence of aortocoronary bypass graft; Z88.1 Allergy status to other antibiotic agents; Z79.899 Other long term (current) drug therapy
CPT/HCPCS: 36415; 36556; 71045; 80053; 81001; 83880; 84484; 85025; 85610; 85730; 96374; 99285; C1752; J1644